=== PATIENT | female | born 1930 | race Caucasian/White ===

== ENCOUNTER 2016-10-10 18:56 | Inpatient (IN) | payer MEDICARE ==
[2016-10-10] VITALS (11 sets, daily range): BP systolic 145–198; BP diastolic 77–128; PULSE 68–141; RESP 16–20; TEMP 97.8–98; O2SAT 91–98
[~2016-10-10] VITALS: Ht 167.6 cm; Wt 64.5 kg
[~2016-10-10 18:56] MED LIST: ENOX40P SC; LEVO100T60 PO; LORT5TAB PO; NORV10TA OR; PACE100T2 PO; SIMV20 PO; ST J81CH PO
[2016-10-10] MEDS ORDERED: DILTIAZEM HCL 25 MG/5 ML VIAL IV ONE (19:15)
[2016-10-10] MEDS ORDERED: LEVO100T63 PO (19:21)
[2016-10-10] MEDS ORDERED: ZOCO20TA PO (19:21)
[2016-10-10] MEDS ORDERED: ASPI81TA81 (19:21)
[2016-10-10] MEDS ORDERED: SYNT25TA PO (19:21)
[2016-10-10] MEDS ORDERED: WARF-18 PO (19:21)
[2016-10-10] MEDS ORDERED: VITA400C28 (19:21)
[2016-10-10 19:32] LABS: AUTOMATED NEUTROPHIL # 2.8 TH/MM3 (1.8-7.7); BASOPHIL % 0.5 % (0.0-2.0); EOSINOPHIL # 0.2 TH/MM3 (0-0.4); EOSINOPHIL % 3.3 % (0.0-4.0); HEMATOCRIT 43.9 % (35.0-46.0); HEMO FLAGS DIFF FINAL; LYMPH % 37.1 % (9.0-44.0); LYMPHOCYTE # 2.3 TH/MM3 (1.0-4.8); MEAN CELL VOLUME 92.4 FL (80.0-100.0); MEAN CORPUSCULAR HEMOGLOBIN 31.3 PG (27.0-34.0); MEAN CORPUSCULAR HGB CONC 33.9 % (32.0-36.0); MONO % 12.8 % (0.0-8.0); NEUT % 46.3 % (16.0-70.0); PLATELET COUNT 150 TH/MM3 (150-450); RED BLOOD COUNT 4.75 MIL/MM3 (4.00-5.30); RED CELL DISTRIBUTION WIDTH 13.5 % (11.6-17.2); WHITE BLOOD COUNT 6.1 TH/MM3 (4.0-11.0)
--- NOTE | 2016-10-10 19:44 | RADRPT ---
EXAM DATE/TIME: 10/10/2016 19:23 [facility] COMPARISON: No previous studies available for comparison. INDICATIONS : Stroke alert, Memory loss and left facial droop. RADIATION DOSE: 32.26 CTDIvol (mGy) This report was called by Dr. Lin to Dr. Jaimes at 7: 41 PM MEDICAL HISTORY : Cardiovascular disease. SURGICAL HISTORY : Appendectomy. Hysterectomy. ENCOUNTER: Initial ACUITY: 1 day PAIN SCALE: 0/10 LOCATION: cranial TECHNIQUE: Multiple contiguous axial images were obtained of the head. Using automated exposure control and adj ustment of the mA and/or kV according to patient size, radiation dose was kept as low as reasonably a chievable to obtain optimal diagnostic quality images. DICOM format image data is available electro nically for review and comparison. FINDINGS: CEREBRUM: The ventricles are normal for age. No evidence of midline shift, mass lesion, hemorrhage or acute in farction. Bilateral low attenuation subdural fluid seen along both frontal convexities measuring up t o 8 mm in maximal thickness on the right and 10 mm in maximal thickness on the left. No acute extra-a xial fluid collections are seen. POSTERIOR FOSSA: The cerebellum and brainstem are intact. The 4th ventricle is midline. The cerebellopontine angle i s unremarkable. EXTRACRANIAL: The visualized portion of the orbits is intact. SKULL: The calvaria is intact. No evidence of skull fracture. CONCLUSION: No acute intracranial abnormality demonstrated. 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 Wyatt Lin MD on October 10, 2016 at 19:38 Board Certified Radiologist. This report was verified electronically.
[2016-10-10 19:46] LABS: APTT (PATIENT) 28.5 SEC (24.3-30.1); INTERNATIONAL NORMALIZED RATIO 1.4 RATIO
[2016-10-10 19:47] LABS: I-STAT POTASSIUM 4.3 MMOL/L (3.5-4.9); I-STAT SODIUM 143 MMOL/L (138-146)
--- NOTE | 2016-10-10 19:58 | RADRPT ---
EXAM DATE/TIME: 10/10/2016 19:07 [facility] COMPARISON: No previous studies available for comparison. INDICATIONS : Short of breath. Possible stroke. MEDICAL HISTORY : None. SURGICAL HISTORY : CABG. ENCOUNTER: Initial ACUITY: 1 day PAIN SCORE: 3/10 LOCATION: Bilateral chest FINDINGS: No infiltrate, effusion or pneumothorax. Heart size upper limits of normal. Patient has had previous median sternotomy. CONCLUSION: No evidence of acute cardiopulmonary disease. Wyatt Lin MD on October 10, 2016 at 19:56 Board Certified Radiologist. This report was verified electronically.
--- NOTE | 2016-10-10 20:04 | PD ---
HPI Chief Complaint: Neuro Symptoms/ Deficits Time Seen by Provider: 19:03 Travel History International Travel<30 days: No Contact w/Intl Traveler<30days: No Traveled to known affect area: No History of Present Illness HPI 85-year-old female presents with 40 minutes of acute onset of difficulty coming up with her words. She states that she has no associated weakness or numbness or other complaints that she is aware of. She states she was in the kitchen and couldn't come up with the word fork. Her brought her here for evaluation. Quality is can't get the word out feeling. She denies prior history of stroke. She states that she takes Coumadin. She has been taking it like she should. help supplement history but limited on initial evaluation PFSH Past Medical History Narrative Medical By records Arthritis: Yes Atrial Fibrillation: Yes Autoimmune Disease: No Anxiety: No Depression: No Cancer: No Cardiovascular Problems: No Chemotherapy: No Diabetes: No Patient Takes Glucophage: No Diminished Hearing: Yes (WEARS GLASSES) Endocrine: Yes (hypothyrodism) Genitourinary: No Immune Disorder: No Neurologic: No Psychiatric: No Reproductive: No Respiratory: No Immunizations Current: Yes Radiation Therapy: No Sickle Cell Disease: No Thyroid Disease: Yes (hypothyrodism) Tetanus Vaccination: < 5 Years Influenza Vaccination: Yes ?: Not Menopausal: Yes Past Surgical History Narrative Surgical By records Abdominal Surgery: Yes (APPENDIX REMOVED) Body Medical Devices: titanium marker under one of my breast Cardiac Surgery: Yes (OPEN HEART) Ear Surgery: No Endocrine Surgery: No Eye Surgery: Yes (GLAUCOMA REMOVAL (BILATERAL)) Genitourinary Surgery: Yes (BLADDER SUSPENSION) Gynecologic Surgery: Yes (HYSTERECTOMY) Oral Surgery: No Pacemaker: No Thoracic Surgery: No Social History Alcohol Use: No Tobacco Use: No Substance Use: No Allergies-Medications (Allergen,Severity, Reaction): Coded Allergies: No Known Allergies (Verified , 10/10/16) Reported Meds & Prescriptions Reported Meds & Active Scripts Active Reported Vitamin D (Cholecalciferol) 400 Unit Cap Aspir-81 (Aspirin) 81 Mg Tabdr Synthroid (Levothyroxine Sodium) 25 Mcg Tab 25 Mcg PO DAILY Warfarin 2.5 Mg Tab 2.5 Mg PO DAILY Zocor (Simvastatin) 20 Mg Tab 20 Mg PO DAILY Levoxyl (Levothyroxine Sodium) 100 Mcg Tab 100 Mcg PO DAILY Review of Systems ROS Limitations: Speech Impaired (slurred) Except as stated in HPI: all other systems reviewed are Neg Physical Exam Narrative GENERAL: Well-nourished, well-developed patient. Tearful SKIN: Warm and dry. HEAD: Normocephalic and atraumatic. EYES: No injection or drainage. ENT: No nasal drainage noted. NECK: Supple, trachea midline. CARDIOVASCULAR: irregular rate and rhythm RESPIRATORY: Breath sounds equal bilaterally at apices. No accessory muscle use. GASTROINTESTINAL: Abdomen soft, non-tender, nondistended. NEUROLOGICAL: Awake and alert. Motor and sensory grossly within normal limits. Mild slurred speech, mild lower facial droop noted Data Data Last Documented VS Vital Signs Date Time Temp Pulse Resp B/P Pulse Ox O2 Delivery O2 Flow Rate FiO2 10/10/16 20:00 91 Nasal Cannula 2 10/10/16 19:59 99 16 164/77 10/10/16 19:03 97.8 Orders Complete Blood Count With Diff (10/10/16 19:04) Urinalysis - C+S If Indicated (10/10/16 19:04) Act Partial Throm Time (Ptt) (10/10/16 19:04) Prothrombin Time / Inr (Pt) (10/10/16 19:04) Ct Brain W/O Iv Contrast(Rout) (10/10/16 ) Chest, Single Ap (10/10/16 ) Electrocardiogram (10/10/16 ) Iv Access Insert/Monitor (10/10/16 19:04) Ecg Monitoring (10/10/16 19:04) Oximetry (10/10/16 19:04) Type And Screen (10/10/16 19:04) Diltiazem Inj (Cardizem Inj) (10/10/16 19:15) I-Stat Creatinine (10/10/16 19:18) I-Stat Profile (10/10/16 19:18) Ckmb (Isoenzyme) Profile (10/10/16 19:07) Comprehensive Metabolic Panel (10/10/16 19:07) Troponin I (10/10/16 19:07) Thyroid Stimulating Hormone (10/10/16 19:07) Heparin-D5w Inj (Heparin-D5w Inj) (10/10/16 20:15) Cbc No Diff, Includes Plts (10/13/16 06:00) Urinary Catheter Insert/Apply (10/10/16 20:15) Cta Brain W Iv Contrast W 3d (10/10/16 20:18) Cta Neck W Iv Contrast W 3d (10/10/16 20:18) Admit Order (Ed Use Only) (10/10/16 20:25) Admit To Inpatient (10/10/16 ) Code Status (10/10/16 20:28) Vital Signs (Adult) Q4H (10/10/16 20:28) Nih Stroke Scale - Nihss .On admission and discharge (10/10/16 20:28) Case Management Consult (10/10/16 ) Activity Bed Rest (10/10/16 20:28) Nursing Bedside Swallow Assess .ONCE (10/10/16 20:28) Scd Bilateral/Knee High SARA.QSHIFT (10/10/16 20:28) Diet Npo (10/11/16 Breakfast) Hemoglobin (Hgb) A1c (10/11/16 06:00) Lipid Profile (10/11/16 06:00) Echo 2d Comp With Doppler (10/10/16 ) Resp Oxygen Jose Alfredo C Titrat 1-4 L (10/10/16 ) ^ Hold Medication (10/10/16 20:28) Consult Neurology (10/10/16 ) Sodium Chloride 0.9% Flush (Ns Flush) (10/10/16 21:00) Sodium Chloride 0.9% Flush (Ns Flush) (10/10/16 20:30) Sodium Chlor 0.9% 1000 Ml Inj (Ns 1000 M (10/10/16 20:28) Labetalol Inj (Trandate Inj) (10/10/16 20:30) Aspirin Supp (Aspirin Supp) (10/11/16 09:00) Pravastatin (Pravachol) (10/10/16 21:00) Bedside Glucose SARA.AC&HS (10/10/16 20:28) ^ Discontinue Insulin Orders (10/10/16 20:28) Insulin Aspart Supplemtl Scale (Novolog (10/10/16 21:00) Dextrose 50% In Williams (Vial) Inj (D50w (Vi (10/10/16 20:30) Glucagon Inj (Glucagon Inj) (10/10/16 20:30) Acquisitions Editor / Telemetry SARA.Q8H (10/10/16 20:28) Consult Stoke Navigator (10/10/16 ) Inpatient Certification (10/10/16 ) Labs Laboratory Tests Test 10/10/16 19:07 White Blood Count 6.1 TH/MM3 Red Blood Count 4.75 MIL/MM3 Hemoglobin 14.9 GM/DL Bedside Hemoglobin 15.3 G/DL Hematocrit 43.9 % Bedside Hematocrit 45.0 % Mean Corpuscular Volume 92.4 FL Mean Corpuscular Hemoglobin 31.3 PG Mean Corpuscular Hemoglobin 33.9 % Concent Red Cell Distribution Width 13.5 % Platelet Count 150 TH/MM3 Mean Platelet Volume 8.4 FL Neutrophils (%) (Auto) 46.3 % Lymphocytes (%) (Auto) 37.1 % Monocytes (%) (Auto) 12.8 % Eosinophils (%) (Auto) 3.3 % Basophils (%) (Auto) 0.5 % Neutrophils # (Auto) 2.8 TH/MM3 Lymphocytes # (Auto) 2.3 TH/MM3 Monocytes # (Auto) 0.8 TH/MM3 Eosinophils # (Auto) 0.2 TH/MM3 Basophils # (Auto) 0.0 TH/MM3 CBC Comment DIFF FINAL Differential Comment Prothrombin Time 16.0 SEC Prothromb Time International 1.4 RATIO Ratio Activated Partial 28.5 SEC Thromboplast Time Bedside Sodium 143 MMOL/L Bedside Potassium 4.3 MMOL/L Bedside Chloride 106 MMOL/L Bedside Blood Urea Nitrogen 15 MG/DL Bedside Creatinine 1.1 MG/DL Bedside Glucose 202 MG/DL Blood Type A POSITIVE Antibody Screen NEGATIVE MDM Medical Decision Making Medical Screen Exam Complete: Yes Emergency Medical Condition: Yes Medical Record Reviewed: Yes (past history confirmed) Interpretation(s) CBC & BMP Diagram 10/10/16 19:07 Last [address] 10/10/16 0000 Signed Impressions: Service Date/Time: Monday, October 10, 2016 19:23 - CONCLUSION: No acute intracranial abnormality demonstrated. 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 Wyatt Lin MD Chest X-Ray 10/10/16 0000 Signed Impressions: Service Date/Time: Monday, October 10, 2016 19:07 - CONCLUSION: No evidence of acute cardiopulmonary disease. Wyatt Lin MD EKG is atrial fibrillation in the 130 range without STEMI criteria Differential Diagnosis Stroke, bleed, seizure, migraine Narrative Course Will check blood work, CT brain and dose with low-dose Cardizem and discuss with neurologist given acute onset of symptoms Blood pressure and heart rate have improved. Patient updated. Denies prior history of head bleed, agrees to admission, no change in symptoms Critical Care Narrative Aggregate critical care time was 31 minutes. Time to perform other separately billable procedures was not included in the critical care time. My time did not include minutes spent treating any other patients simultaneously or on activities that did not directly contribute to the patient's treatment. The services I provided to this patient were to treat and/or prevent clinically significant deterioration that could result in: , shock I provided critical care services requiring my management, as noted below: Chart data review, documentation time, medication orders and management, vital sign assessments/reviewing monitor data, ordering and reviewing lab tests, ordering and interpreting/reviewing x-rays and diagnostic studies, care of the patient and discussion of the patient with the admitting physicians. Physician Communication Physician Communication Dr. Luu states given on Coumadin and minor stroke scale of 2 no stroke alert, requests CTA brain and neck Dr. Luu updated and request heparin drip without bolus and she will need her Coumadin adjusted Dr. Coello agrees to admission Diagnosis Primary Impression: Facial droop Additional Impressions: Slurred speech Atrial fibrillation with RVR Admitting Information Admitting Physician Requests: Admit Adele Turner MD Oct 10, 2016 20:04
[2016-10-10] MEDS: HEPARIN-D5W INJ 250 ML IV SCH (20:29)
[2016-10-10] MEDS ORDERED: DEXTROSE 50% IN WATER 50 ML VIAL(D50) IV PUSH PRN (20:30)
[2016-10-10] MEDS ORDERED: GLUCAGON 1 MG/ML VIAL OTHER PRN (20:30)
[2016-10-10] MEDS ORDERED: SODIUM CHLORIDE 0.9% FLUSH 5 ML FLUSH IV FLUSH PRN (20:30)
--- NOTE | 2016-10-10 20:31 | HHI.HP ---
HPI Service [facility] Primary Care Physician Augustine Olmos Admission Diagnosis stroke, afib rvr Diagnoses: (1) CVA (cerebral vascular accident) Diagnosis: Principal (2) Atrial fibrillation with RVR Diagnosis: Principal (3) Chronic anticoagulation Diagnosis: Principal (4) Hyperglycemia Diagnosis: Principal (5) CYNTHIA (acute kidney injury) Diagnosis: Principal Travel History International Travel<30 Days: No Contact w/Intl Traveler <30 Da: No Traveled to Known Affected Are: No History of Present Illness This is an 85-year-old female with a PMH of A. fib on Coumadin, HTN, Hyperlipidemia and Hypothyroidism who presented to the ER with strokelike symptoms starting approximately 40min prior to arrival. States she couldn't say the word "fork", noted by to have slight slurred speech, symptoms persistent. On arrival, BP 145/99, HR 133, O2 sat 93% on RA, Afebrile. Stroke Scale 2. Noted to be in A. fib with RVR, s/p Cardizem 5mg w/ HR now 85. CT Head w/ no acute findings, bifrontal cystic hygromas. Dr. Luu consulted, given low stroke scale and Coumadin therapy, no Stroke Alert initiated. Recommended CTA Head/Neck, currently pending. CBC unremarkable. Chemistry unremarkable except for creatinine 1.21, previously 0.91 07/31/11. BS 202. Troponin negative. CXR with no acute findings. Review of Systems Except as stated in HPI: all other systems reviewed are Neg ROS: 14 point review of systems otherwise negative. Past Family Social History Past Medical History PMH: A. fib on Coumadin, HTN, Hyperlipidemia and Hypothyroidism Past Surgical History PAST SURGICAL HISTORY: Appendectomy, Bladder Suspension, Hysterectomy, Glaucoma , Open Heart Allergies: Coded Allergies: No Known Allergies (Verified , 10/10/16) Family History PAST FAMILY HISTORY: Reviewed. No h/o DM or CAD Social History PAST SOCIAL HISTORY: Negative for alcohol, tobacco or drugs. Physical Exam Vital Signs Vital Signs Date Time Temp Pulse Resp B/P Pulse Ox O2 Delivery O2 Flow Rate FiO2 10/10/16 20:00 91 Nasal Cannula 2 10/10/16 19:59 99 16 164/77 91 Room Air 10/10/16 19:30 105 18 179/128 93 Room Air 10/10/16 19:25 133 18 145/99 93 Room Air 10/10/16 19:03 97.8 141 20 187/107 94 Room Air 10/10/16 19:02 141 20 95 Physical Exam PE: GENERAL: Pleasant elderly female in no acute distress. HEENT: PERRLA, EOMI. No scleral icterus or conjunctival pallor. No lid lag. + facial droop. Mild slurred speech CARDIOVASCULAR: Regular rate and rhythm. No obvious murmurs to auscultation. No chest tenderness to palpation. RESPIRATORY: No obvious rhonchi or wheezing. Clear to auscultation. Breath sounds equal bilaterally. GASTROINTESTINAL: Abdomen soft, non-tender, nondistended. BS normal. MUSCULOSKELETAL: Extremities without clubbing, cyanosis, or edema. No obvious deformities. NEUROLOGICAL: Awake, alert and oriented x4. Slurred speech. No focal neurologic deficits. Moving both upper and lower extremities spontaneously. Laboratory Laboratory Tests Test 10/10/16 19:07 White Blood Count 6.1 Red Blood Count 4.75 Hemoglobin 14.9 Bedside Hemoglobin 15.3 Hematocrit 43.9 Bedside Hematocrit 45.0 Mean Corpuscular Volume 92.4 Mean Corpuscular Hemoglobin 31.3 Mean Corpuscular Hemoglobin 33.9 Concent Red Cell Distribution Width 13.5 Platelet Count 150 Mean Platelet Volume 8.4 Neutrophils (%) (Auto) 46.3 Lymphocytes (%) (Auto) 37.1 Monocytes (%) (Auto) 12.8 Eosinophils (%) (Auto) 3.3 Basophils (%) (Auto) 0.5 Neutrophils # (Auto) 2.8 Lymphocytes # (Auto) 2.3 Monocytes # (Auto) 0.8 Eosinophils # (Auto) 0.2 Basophils # (Auto) 0.0 CBC Comment DIFF FINAL Differential Comment Prothrombin Time 16.0 Prothromb Time International 1.4 Ratio Activated Partial 28.5 Thromboplast Time Bedside Sodium 143 Bedside Potassium 4.3 Bedside Chloride 106 Bedside Blood Urea Nitrogen 15 Bedside Creatinine 1.1 Bedside Glucose 202 Blood Type A POSITIVE Antibody Screen NEGATIVE Result Diagram: 10/10/16 9115 Assessment and Plan Problem List: (1) CVA (cerebral vascular accident) ICD Code: I63.9 Status: Acute (2) Atrial fibrillation with RVR ICD Code: I48.91 Status: Acute (3) CYNTHIA (acute kidney injury) ICD Code: N17.9 Status: Acute (4) Chronic anticoagulation ICD Code: Z79.01 Status: Acute (5) Hyperglycemia ICD Code: R73.9 Status: Acute Assessment and Plan A/P 1. CVA: acute onset of slurred speech, word finding difficulty and mild facial droop approx 40min prior to arrival. Stroke Scale 2, on Coumadin. Dr. Luu consulted by ER physician, no Stroke Alert in light of low stroke scale and anticoagulation. Recommendation for CTA Head/Neck, currently pending. Neuro Checks, NPO, IVF, permissive HTN. 2. A-fib w/ RVR: H/o A-fib on Coumadin, subtherapeutic w/ INR 1.4. Episode of RVR w/ HR 130's, s/p Cardizem 5mg x1 in ER w/ HR now 80's, will monitor, caution w/ Cardizem and hypotension in light of CVA. Started on Heparin gtt in ER, will continue. Check Echo. 3. CYNTHIA: Creatinine 1.21, previously 0.91 07/31/11. Check UA. IVF for hydration , repeat labs in a.m. 4. Chronic Anticoagulation: As above, patient on Coumadin for history of A. fib, INR subtherapeutic at 1.4. Started on Heparin gtt in ER, will continue. 5. Hyperglycemia: BS 202 on arrival, no h/o DM. Check Hgb A1c, sliding scale w/ Accu-Cheks. 6. DVT Prophylaxis: Heparin gtt 7. Social work for DC planning as needed. 8. Case discussed at length with ER physician. Physician Certification 2 Midnight Certification Type: Admission for Inpatient Services Order for Inpatient Services The services are ordered in accordance with Medicare regulations or non- Medicare payer requirements, as applicable. In the case of services not specified as inpatient-only, they are appropriately provided as inpatient services in accordance with the 2-midnight benchmark. Estimated LOS (days): 2 days is the estimated time the patient will need to remain in the hospital, assuming treatment plan goals are met and no additional complications. Post-Hospital Plan: Not yet determined Marjan Coello MD Oct 10, 2016 20:31
[2016-10-10 20:43] LABS: BLOOD, URINE MOD (NEG); COMMENT (UR) CULT NOT INDICATED; CULTURE IF INDICATED CULT NOT INDICATED; GLUCOSE,URINE NEG (NEG); KETONE, URINE NEG (NEG); NITRITE,URINE NEG (NEG); URINE COLOR YELLOW (YELLW/STRAW)
[2016-10-10] MEDS ORDERED: IOHEXOL 350 MG/ML 10 ML VIAL (for RAD DIAG) IV ONE (20:54)
[2016-10-10] MEDS: PRAVASTATIN SOD 40 MG TAB PO SCH (21:00)
[2016-10-10] MEDS: SODIUM CHLORIDE 0.9% FLUSH 5 ML FLUSH IV FLUSH SCH (21:00)
[2016-10-10 21:10] LABS: ALT (GPT) 24 U/L (10-53); ANION GAP 9 MEQ/L (5-15); AST (GOT) 30 U/L (15-37); BICARBONATE 22.3 MEQ/L (21.0-32.0); BLOOD UREA NITROGEN 15 MG/DL (7-18); CHLORIDE 109 MEQ/L (98-107); GLOMERULAR FILTRATION RATE 42 ML/MIN (>89); POTASSIUM 4.2 MEQ/L (3.5-5.1); SODIUM (NA) 140 MEQ/L (136-145)
[2016-10-10 21:20] LABS: ALKALINE PHOSPHATASE 63 U/L (45-117); CREATINE KINASE 101 U/L (26-192); TOTAL BILIRUBIN ADULT 0.8 MG/DL (0.2-1.0)
--- NOTE | 2016-10-10 21:24 | RADRPT ---
EXAM DATE/TIME: 10/10/2016 20:45 [facility] COMPARISON: No previous studies available for comparison. INDICATIONS : Memory loss and facial droop. IV CONTRAST: 75 cc Omnipaque 350 (iohexol) IV ; Cumulative dose for multiple exams. RADIATION DOSE: 15.76 CTDIvol (mGy) ; Combined studies MEDICAL HISTORY : Cardiovascular disease. SURGICAL HISTORY : None. ENCOUNTER: Initial ACUITY: 1 day PAIN SCALE: 0/10 LOCATION: cranial TECHNIQUE: Volumetric scanning was performed using a multi-row detector CT scanner. The data was post processed with a variety of visualization algorithms including full volume maximum intensity projection, multi -planar sliding thin slab reformation, curved planar reformation, and surface rendering techniques. Using automated exposure control and adjustment of the mA and/or kV according to patient size, radiat ion dose was kept as low as reasonably achievable to obtain optimal diagnostic quality images. DICO M format image data is available electronically for review and comparison. FINDINGS: There is excellent visualization of the major intracranial arteries out to the second-order branch ve ssels. There is no evidence for aneurysm, vessel truncation or stenosis, and no evidence for vascula r malformation. CONCLUSION: Intracranial arteries are within normal limits. Wyatt Lin MD on October 10, 2016 at 21:22 Board Certified Radiologist. This report was verified electronically.
[2016-10-10] MEDS: SODIUM CHLOR 0.9% 1000 ML INJ 1,000 ML IV SCH (21:29)
--- NOTE | 2016-10-10 21:34 | RADRPT ---
EXAM DATE/TIME: 10/10/2016 20:50 [facility] COMPARISON: No previous studies available for comparison. INDICATIONS : Memory loss and facial droop. IV CONTRAST: 75 cc Omnipaque 350 (iohexol) IV ; Cumulative dose for multiple exams. RADIATION DOSE: 15.76 CTDIvol (mGy) ; Combined studies MEDICAL HISTORY : Cardiovascular disease. SURGICAL HISTORY : None. ENCOUNTER: Initial ACUITY: 1 day PAIN SCALE: 0/10 LOCATION: neck Elevated flow velocities and ICA/CCA ratios have been found to correlate with increased degrees of vessel stenosis, calculated as percentage of diameter relative to a normal segment of distal ICA/CCA. TECHNIQUE: Volumetric scanning was performed using a multirow detector CT scanner. The data was post processed with a variety of visualization algorithms including full-volume maximum intensity projection, multip lanar sliding thin-slab reformation, curved-planar reformation, and surface-rendering techniques. Us ing automated exposure control and adjustment of the mA and/or kV according to patient size, radiatio n dose was kept as low as reasonably achievable to obtain optimal diagnostic quality images. DICOM f ormat image data is available electronically for review and comparison. FINDINGS: AORTIC ARCH: There is a three-vessel origin of the great vessels from the aorta. No evidence of ostial narrowing. RIGHT CAROTID: The common carotid artery is intact. The carotid bulb has a normal configuration without ulceration o r narrowing. There is soft and calcified plaque of the proximal right internal carotid artery and wit h an associated 12 mm long area of stenosis probably approaching 70%.. The external carotid artery i s intact. LEFT CAROTID: The common carotid artery is intact. The carotid bulb has a normal configuration without ulceration or narrowing. There is atherosclerosis of the proximal left internal carotid artery with subcentimete r long narrowing of the 50%.. The external carotid artery is intact. VERTEBRALS: The vertebral arteries have a symmetric diameter. No stenotic lesions are seen. CONCLUSION: Atherosclerotic plaque of both carotid bifurcations with moderate to severe right and moderate left i nternal carotid artery stenosis. The right ICA stenosis probably approaches hemodynamic significance. Wyatt Lin MD on October 10, 2016 at 21:30 Board Certified Radiologist. This report was verified electronically.
[2016-10-10] MEDS: INSULIN ASPART SUPPLEMENTAL SCALE SQ SCH (22:00)
[2016-10-10] MEDS ORDERED: LABETALOL HCL 100 MG/20 ML VIAL IV PRN (22:00)
[2016-10-11] VITALS (22 sets, daily range): BP systolic 105–178; BP diastolic 67–103; PULSE 71–96; RESP 15–19; TEMP 98–98.5; O2SAT 92–100
[2016-10-11 04:16] LABS: APTT (PATIENT) 47.1 SEC (24.3-30.1)
[2016-10-11 04:20] LABS: HDL CHOLESTEROL 45.7 MG/DL (40.0-60.0); LDL CHOLESTEROL 54 MG/DL (0-99)
[2016-10-11] MEDS: INSULIN ASPART SUPPLEMENTAL SCALE SQ SCH ×4 (06:07→21:00)
[2016-10-11] MEDS: SODIUM CHLORIDE 0.9% FLUSH 5 ML FLUSH IV FLUSH SCH ×2 (09:00→21:00)
[2016-10-11] MEDS: ASPIRIN 300 MG SUPP RECTAL SCH (09:00)
[2016-10-11] MEDS ORDERED: LORazepam 2 MG/ML VIAL IV PUSH ONE (10:45)
[2016-10-11] MEDS: SODIUM CHLOR 0.9% 1000 ML INJ 1,000 ML IV SCH (10:46)
[2016-10-11 11:07] LABS: APTT (PATIENT) 49.7 SEC (24.3-30.1)
[2016-10-11] MEDS ORDERED: ASPIRIN 325 MG TAB PO ONE (11:15)
[2016-10-11 12:08] LABS: INTERNATIONAL NORMALIZED RATIO 1.6 RATIO; PROTHROMBIN TIME - PATIENT 18.1 SEC (9.8-11.6)
[2016-10-11] MEDS ORDERED: GADOBENATE DIM PF 529 MG/ML 10ML VIAL (for RAD MRI) IV ONE (12:18)
--- NOTE | 2016-10-11 13:21 | RADRPT ---
EXAM DATE/TIME: 10/11/2016 12:08 [facility] COMPARISON: CTA BRAIN W 3D RECON, October 10, 2016, 20:45. CT BRAIN W/O CONTRAST, October 10, 2016, 19:23. INDICATIONS : Expressive aphasia. CONTRAST: 10 cc Multihance (gadobenate) IV MEDICAL HISTORY : Hypertension. Cardiovascular disease SURGICAL HISTORY : CABG Hip surgery. ENCOUNTER: Initial ACUITY: 1 day PAIN SCORE: 0/10 LOCATION: cranial TECHNIQUE: Multiplanar, multisequence MRI of the brain was performed both prior to and following the administrat ion of paramagnetic contrast. FINDINGS: CEREBRUM: Focal area of restricted diffusion is identified in the right frontal cortex. This is in the lateral premotor region just above Broca's area. Normal signal intensity is also otherwise noted throughout t he cerebral hemispheres. No other areas of restricted diffusion are seen. There is no subacute hemorr bull, mass effect or enhancing lesions. WHITE MATTER: No significant signal abnormalities are seen in the white matter. POSTERIOR FOSSA: The cerebellum and brainstem are intact. The 4th ventricle is midline. The cerebellopontine angle is unremarkable. The cerebellar tonsils are normal in position. DIFFUSION IMAGING: No other focal areas of restricted diffusion are seen. EXTRACRANIAL: The visualized portions of the orbits and paranasal sinuses are unremarkable. POST-CONTRAST: No abnormal areas of parenchymal or dural enhancement. No evidence of blood-brain barrier breakdown. CONCLUSION: Acute right frontal lobe infarct which correlates with the patient's expressive aphasia. No other significant abnormalities Mathew Mercer MD on October 11, 2016 at 13:09 Board Certified Radiologist. This report was verified electronically.
--- NOTE | 2016-10-11 14:01 | EKG ---
Date Performed: 10/10/2016 Time Performed: 19:13:20 PTAGE: 85 years EKG: ATRIAL FIBRILLATION WITH RAPID VENTRICULAR RESPONSE ABNORMAL RHYTHM ECG PREVIOUS TRACING : 07/28/2011 20.34 Since prior tracing, atrial fibrillation with rapid ventric ular response has replaced Sinus rhythm . DOCTOR: Aron Lofton Interpretating Date/Time 10/11/2016 14:01:05
[2016-10-11 14:38] LABS: BICARBONATE 27.2 MEQ/L (21.0-32.0)
[2016-10-11 15:04] LABS: FREE T4 1.7 NG/DL (0.76-1.46)
--- NOTE | 2016-10-11 15:15 | MB ---
cc: MICHELLE HOPPER M.D. DATE OF CONSULTATION: 10/11/2016. HISTORY OF PRESENT ILLNESS: 85-year-old right-handed woman with a history of CABG and atrial fibrillation who takes a baby aspirin a day and also Coumadin, hypothyroidism. She takes a statin. Yesterday at dinner she noticed that she was washing the dishes after dinner and she could not figure out how to put something in the bag. Her speech was slurred with a left facial droop. She came into the emergency room and was noted to have a mild deficit and as such was not given tPA. Her INR was subtherapeutic at 1.4 and she was started on IV heparin. CTA of the neck looks to me to be almost a 90% stenosis. It was read as a 50% stenosis on the left. A chest x-ray was negative. CTA [place] negative. CT scan of the brain shows some bilateral hygromas, chronic, 1 cm the left and 0.83 cm on the right. No blood products in there. REVIEW OF SYSTEMS: She denies any hypertension, diabetes, hypercholesterolemia, renal, hepatic, pulmonary disease, lupus, ulcer, cancer, seizure or stroke. SOCIAL HISTORY: Nonsmoker or drinker. She lives with her . FAMILY HISTORY: Negative for cancer, seizure or stroke. MEDICATIONS: 1. Vitamin D. 2. Aspirin 81. 3. Synthroid. 4. Coumadin 2.5 a day. 5. Zocor. 6. Thyroid medicine. ALLERGIES: NO KNOWN DRUG ALLERGIES. PHYSICAL EXAMINATION: VITAL SIGNS: Afebrile, 85, 16, 178/93 to 173/103. Highest blood pressure was 187/107. NECK: There were no carotid bruits. HEART: Regular rhythm. I do not detect a murmur. NEUROLOGICAL EXAMINATION: Pupils are equal. Visual krishnamurthy are full. Extraocular movements intact without nystagmus. She does have a left facial droop with normal sensation. Tongue was midline. Speech is a little dysarthric but she is not aphasic. There is no drift. She had normal strength in upper and lower extremities bilaterally. DTRs are 2+ symmetric. Toes are downgoing bilaterally. Pin prick is intact throughout. She is not ataxic on [id number]. Fast finger movements were symmetric and normal. LABS: CBC is normal. Her urinalysis was negative except for 85 red cells. Basic metabolic profile was normal. GFR is 42. Glucose 202, although she denied any diabetes. Troponin, CPK, liver function tests normal. LDL cholesterol is 54. TSH is low at 0.36. INR was 1.4 yesterday and is pending today. CBC was normal. IMPRESSION: Right-sided stroke. I thought the right carotid was significantly stenosed, I thought a little bit more than 70%. Will have to see what vascular says. Will have Dr. Harvey, who is known to them, come by and see her for cardiology as he was recommending a stress test as an outpatient. See what her INR is today. Depending on the size of the stroke will depend on if she needs a right carotid endarterectomy and the timing for the surgery. I did discuss with her as far as her greens intake, she eats a lot of greens, although she is usually therapeutic but was subtherapeutic now. MD CAMILLE Prince/IDALIA /10:41 AM /3:06 PM
--- NOTE | 2016-10-11 15:20 | HHI.PR ---
Subjective Remarks Follow-up for CVA sedated, currently poor historian. Very sleepy and groggy but allegedly oriented before Ativan was given for MRI. Objective Vitals Vital Signs Date Time Temp Pulse Resp B/P Pulse Ox O2 Delivery O2 Flow Rate FiO2 10/11/16 14:05 84 10/11/16 13:08 81 10/11/16 11:00 98.3 79 18 112/84 96 10/11/16 09:06 99 Nasal Cannula 10/11/16 07:00 98.3 85 16 178/93 100 10/11/16 04:29 79 10/11/16 03:51 71 10/11/16 03:16 98.0 81 173/103 99 10/11/16 02:00 78 10/11/16 01:00 72 10/11/16 00:00 74 10/10/16 23:00 68 10/10/16 22:00 86 10/10/16 21:50 98.0 90 186/95 98 10/10/16 21:25 85 16 198/84 96 Nasal Cannula 2 10/10/16 21:07 98 Nasal Cannula 2.00 10/10/16 20:00 91 Nasal Cannula 2 10/10/16 19:59 99 16 164/77 91 Room Air 10/10/16 19:30 105 18 179/128 93 Room Air 10/10/16 19:25 133 18 145/99 93 Room Air 10/10/16 19:03 97.8 141 20 187/107 94 Room Air 10/10/16 19:02 141 20 95 10/10/16 19:00 103 I/O 10/10/16 10/10/16 10/10/16 10/11/16 10/11/16 10/11/16 07:00 15:00 23:00 07:00 15:00 23:00 Output Total 450 ml 1600 ml Balance -450 ml -1600 ml Output Urine Total 450 ml 1600 ml Result Diagram: 10/10/16 1907 10/11/16 1352 Imaging Last Impressions Brain MRI 10/11/16 1038 Signed Impressions: Service Date/Time: Tuesday, October 11, 2016 12:08 - CONCLUSION: Acute right frontal lobe infarct which correlates with the patient's expressive aphasia. No other significant abnormalities Mathew Mercer MD Neck CTA 7/14/17 2018 Signed Impressions: Service Date/Time: Monday, October 10, 2016 20:50 - CONCLUSION: Atherosclerotic plaque of both carotid bifurcations with moderate to severe right and moderate left internal carotid artery stenosis. The right ICA stenosis probably approaches hemodynamic significance. Wyatt Lin MD Head CTA 10/10/162017 Signed Impressions: Service Date/Time: Monday, October 10, 2016 20:45 - CONCLUSION: Intracranial arteries are within normal limits. Wyatt Lin MD Head CT 10/10/16 Signed Impressions: Service Date/Time: Monday, October 10, 2016 19:23 - CONCLUSION: No acute intracranial abnormality demonstrated. 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 Wyatt Lin MD Chest X-Ray 10/10/16 Signed Impressions: Service Date/Time: Monday, October 10, 2016 19:07 - CONCLUSION: No evidence of acute cardiopulmonary disease. Wyatt Lin MD Objective Remarks Not in distress Regular rate and rhythm with skipped beats, no murmurs Clear breath sounds Abdomen soft nontender No edema Moves upper extremities, positive for generalized weakness. Very sleepy but arousable, status post Ativan. Left facial droop positive. Oriented to self. Allegedly oriented to self, place and time prior to Ativan. A/P Problem List: (1) CVA (cerebral vascular accident) ICD Code: I63.9 Status: Acute (2) Atrial fibrillation with RVR ICD Code: I48.91 Status: Acute (3) CYNTHIA (acute kidney injury) ICD Code: N17.9 Status: Acute (4) Chronic anticoagulation ICD Code: Z79.01 Status: Acute (5) Hyperglycemia ICD Code: R73.9 Status: Acute Assessment and Plan This is an 85-year-old female who presented with expressive aphasia CVA, right frontal lobe-MRI showed right frontal lobe infarct, CT of the neck showed possible right internal carotid artery stenosis. Further input per neurology pending. Continue Coumadin per neurology, on heparin for now was subtherapeutic INR. Continue statin. Check echocardiogram. Hypothyroidism-TSH low, free T4 elevated, decrease levothyroxine to 100 g daily. Atrial fibrillation-needs to resume monthly coagulation, Coumadin started, follow INR Acute kidney insufficiency -continue IVF, repeat creatinine better. Hyperglycemia-no history of diabetes mellitus, follow-up hemoglobin A1c, sliding scale insulin for now Consult physical therapy and speech therapy, might need rehabilitation DVT prophylaxis: Coumadin Dominique Cardoso MD Oct 11, 2016 15:20
[2016-10-11] MEDS ORDERED: WARFARIN SOD 3 MG TAB PO SCH (16:00)
--- NOTE | 2016-10-11 20:36 | PD.CAR.PN ---
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 As far as the left side is concerned as red as 50% stenosis however there is a lot of calcium there is very hard to tell some going to go over this with the radiologist on Thursday At this point I believe patient should remain on Coumadin and aspirin have aggressive physical and occupational therapy I will see patient for follow-up in about 10 days at which point we gone a repeat MRI of the brain and then all things equal patient will get surgery following MRI, barring any surprises Full consult dictated Thanks J Objective: Vital Signs Date Time Temp Pulse Resp B/P Pulse Ox O2 Delivery O2 Flow Rate FiO2 10/11/16 18:17 77 10/11/16 17:34 96 10/11/16 16:03 93 10/11/16 15:50 98.3 81 18 126/70 95 10/11/16 15:45 78 10/11/16 14:05 84 10/11/16 13:08 81 10/11/16 11:00 98.3 79 18 112/84 96 10/11/16 09:06 99 Nasal Cannula 10/11/16 07:00 98.3 85 16 178/93 100 10/11/16 04:29 79 10/11/16 03:51 71 10/11/16 03:16 98.0 81 173/103 99 10/11/16 02:00 78 10/11/16 01:00 72 10/11/16 00:00 74 10/10/16 23:00 68 10/10/16 22:00 86 10/10/16 21:50 98.0 90 186/95 98 10/10/16 21:25 85 16 198/84 96 Nasal Cannula 2 10/10/16 21:07 98 Nasal Cannula 2.00 Labs: Laboratory Tests Test 10/11/16 10/11/16 10:47 13:52 Prothrombin Time 18.1 SEC (9.8-11.6) Prothromb Time International 1.6 RATIO Ratio Activated Partial 49.7 SEC Thromboplast Time (24.3-30.1) Sodium Level 140 MEQ/L (136-145) Potassium Level 4.0 MEQ/L (3.5-5.1) Chloride Level 108 MEQ/L (98-107) Carbon Dioxide Level 27.2 MEQ/L (21.0-32.0) Anion Gap 5 MEQ/L (5-15) Blood Urea Nitrogen 13 MG/DL (7-18) Creatinine 0.89 MG/DL (0.50-1.00) Estimat Glomerular Filtration 60 ML/MIN (>89) Rate Random Glucose 105 MG/DL (74-106) Calcium Level 9.3 MG/DL (8.5-10.1) Vitamin B12 Level 502 PG/ML (193-986) Free Thyroxine 1.70 NG/DL (0.76-1.46) Result Diagram: 10/10/16 1907 10/11/16 1352 Teofilo Nunez MD Oct 11, 2016 20:36
--- NOTE | 2016-10-11 21:03 | MB ---
cc: MD [facility]A,[facility] DATE OF CONSULTATION: 10/11/2016. REASON FOR CONSULTATION: Right hemispheric stroke. Right internal carotid artery stenosis. Atrial fibrillation. Coronary artery disease. REFERRING PHYSICIAN: Dr. Luu. CRITICAL CARE TIME: Forty (40) minutes. HISTORY OF PRESENT ILLNESS: This 85-year-old female with history of atrial fibrillation and coronary artery disease presented to the hospital with a story of confusion. The patient apparently was washing dishes yesterday and at that time could not figure out how to put things in place or open a bag. Her speech was slurred. She developed left facial droop. The patient had a small minor deficit. She was evaluated in the emergency room and admitted. Workup reveals a right hemispheric stroke on MRI measuring about 7 mm in diameter. It should be noted that the patient was on coumadin for atrial fibrillation but was somewhat subtherapeutic with an INR of 1.4. Full workup is not completed and the question arises as to what to do about it surgically. PAST MEDICAL HISTORY: 1. Coronary artery disease. 2. Hypothyroidism. 3. Chronic atrial fibrillation. PAST SURGICAL HISTORY: 1. Coronary artery bypass surgery. 2. Appendectomy. 3. Bladder suspension. 4. Hysterectomy. 5. Glaucoma. SOCIAL HISTORY: The patient does not smoke or drink. She lives at home with her . REVIEW OF SYSTEMS: The review of systems is normal. It should also be noted in the review of systems that the patient had one episode in the recent past when she could not swallow at night and this might have been a TIA but it is hard to tell. PHYSICAL EXAMINATION: GENERAL: The physical examination reveals a pleasant 85-year-old lady in no acute distress. HEAD, EYES, EARS, NOSE, THROAT: Normocephalic. No trauma to the head. Pupils equal and reactive. Extraocular muscles intact. The sclerae are nonicteric. The patient has mild facial droop on the left side but also slight decrease in grimace on the right side. She has a little problem with opening her left eye, which has now resolved. Speech is slightly slurred and the patient is searching for words. Some degree of expressive aphasia but doing better. NECK: Bilateral carotid pulses and bilateral carotid bruits. CHEST: Bilateral breath sounds decreased over both lung krishnamurthy. This patient has a moderate degree of COPD. HEART: Controlled atrial fibrillation about 90 while I was in the room but while holding her wrist the rate went up to 110 and then dropped back down. ABDOMEN: Abdomen soft. Active bowel sounds. Scars from previous surgery. EXTREMITIES: Grossly within normal limits. The patient has good proximal and distal pulses. No signs of acute deficit. BACK: Normal. NEUROLOGICAL EXAMINATION: Above-noted weakness of the face and slight slurring of the speech; however, motorically the patient is fully intact. She has bilateral equal strength and symmetric. No lateralization. The patient has not been out of bed now for two days and she is slightly weak and this will be remedied. IMPRESSION AND RECOMMENDATIONS: Patient with a right hemispheric stroke visible on MRI. This is an ischemic stroke and correlates to about 80% right internal carotid artery stenosis. I am fairly sure that this is not related to atrial fibrillation, although sometimes in patients with atrial fibrillation, it is hard to distinguish which one is which and what is the cause. This clearly correlates with a significant degree of carotid disease. Therefore it is my recommendation that the patient does have carotid endarterectomy. The patient is of advanced age but she is very active and as a matter of fact, she bicycles every day and also works out on an [employer] machine, so she is not very sedentary for all practical purposes, and is in fairly good shape. On the left side, the patient has probably more stenosis than CTA would indicate considering there is a fair amount of calcium there; however, this is not symptomatic at this time. Therefore, it is my recommendation that the patient does have carotid endarterectomy with somewhat of a delay. We should probably delay it for about a week or two. I will see the patient in my office in about ten days at which time we are going to repeat the MRI and then all things equal and barring any surprises, will schedule her for right carotid endarterectomy. Thank you very much for the referral. Teofilo ESPINOSA /8:44 PM 8:53 PM
[2016-10-11] MEDS ORDERED: WARFARIN SOD 2 MG TAB PO ONE (21:30)
[2016-10-11] MEDS: PRAVASTATIN SOD 40 MG TAB PO SCH (22:21)
[2016-10-11] MEDS: HEPARIN-D5W INJ 250 ML IV SCH (22:31)
[2016-10-12] VITALS (26 sets, daily range): BP systolic 118–176; BP diastolic 64–83; PULSE 59–110; RESP 15–18; TEMP 97.9–98.6; O2SAT 91–98
[2016-10-12] MEDS: SODIUM CHLOR 0.9% 1000 ML INJ 1,000 ML IV SCH ×2 (01:36→15:22)
[2016-10-12] MEDS: LEVOTHYROXINE SODIUM 100 MCG TAB PO SCH (06:00)
[2016-10-12] MEDS: INSULIN ASPART SUPPLEMENTAL SCALE SQ SCH ×2 (06:03→11:00)
[2016-10-12 06:19] LABS: APTT (PATIENT) 53.2 SEC (24.3-30.1); INTERNATIONAL NORMALIZED RATIO 1.5 RATIO; PROTHROMBIN TIME - PATIENT 17.4 SEC (9.8-11.6)
[2016-10-12] MEDS: ASPIRIN 300 MG SUPP RECTAL SCH (09:00)
[2016-10-12] MEDS: SODIUM CHLORIDE 0.9% FLUSH 5 ML FLUSH IV FLUSH SCH ×2 (09:00→21:00)
--- NOTE | 2016-10-12 09:49 | PD.CONS ---
HPI Service cardiology Consult Requested By service Reason for Consult afib Primary Care Physician Augustine Olmos History of Present Illness admitted with new onset cva with speech and mouth drooling improving had afib before no cva before cabg 2010 no cp no sob fully active no edema no syncope was taking meds faithfully Review of Systems Consitutional: COMPLAINS OF: Fatigue HEENT: COMPLAINS OF: Lightheadedness Past Family Social History Allergies: Coded Allergies: No Known Allergies (Verified , 10/10/16) Past Medical History htn cad cabg afib Past Surgical History non contributing Reported Medications Reported Meds & Active Scripts Active Reported Vitamin D (Cholecalciferol) 400 Unit Cap Aspir-81 (Aspirin) 81 Mg Tabdr Synthroid (Levothyroxine Sodium) 25 Mcg Tab 25 Mcg PO DAILY Warfarin 2.5 Mg Tab 2.5 Mg PO DAILY Zocor (Simvastatin) 20 Mg Tab 20 Mg PO DAILY Levoxyl (Levothyroxine Sodium) 100 Mcg Tab 100 Mcg PO DAILY Active Ordered Medications Current Medications Medications (Trade) Dose Ordered Sig/Donte Route Start Time Stop Time Status Last Admin (Heparin-D5W Inj) 250 ml @ 0 mls/hr TITRATE IV 10/10/16 20:15 10/11/16 22:31 (NS Flush) 2 ml BID IV FLUSH 10/10/16 21:00 10/12/16 09:00 IV Flush 2 ml 2 ml UNSCH PRN IV FLUSH 10/10/16 20:30 (NS 1000 ml Inj) 1,000 ml @ 70 mls/hr [id number] IV 10/10/16 20:28 10/12/16 01:36 (Trandate Inj) 10 mg Q2H PRN IV 10/10/16 22:00 (Aspirin Supp) 300 mg DAILY RECTAL 10/11/16 09:00 (Pravachol) 40 mg HS PO 10/10/16 21:00 10/11/16 22:21 (NovoLOG SUPPLEMENTAL SCALE) 1 ACHS SQ 10/10/16 22:00 (D50w (Vial) Inj) 50 ml UNSCH PRN IV PUSH 10/10/16 20:30 (Glucagon Inj) 1 mg UNSCH PRN OTHER 10/10/16 20:30 (Synthroid) 100 mcg DAILY@0600 PO 10/12/16 06:00 10/12/16 06:00 (Coumadin) 5 mg DAILY@16 PO 10/12/16 16:00 Family History non contributing Social History no tobacco no drugs no alcohol Physical Exam Vital Signs Vital Signs Date Time Temp Pulse Resp B/P Pulse Ox O2 Delivery O2 Flow Rate FiO2 10/12/16 08:35 104 10/12/16 07:00 93 10/12/16 07:00 98.3 95 16 153/83 95 10/12/16 06:17 86 10/12/16 05:00 76 10/12/16 04:00 80 10/12/16 03:00 74 10/12/16 03:00 98.6 88 16 118/67 91 10/12/16 02:15 72 10/12/16 01:01 76 10/11/16 23:00 98.4 80 15 105/67 94 10/11/16 23:00 71 10/11/16 22:00 74 10/11/16 21:00 80 10/11/16 20:00 82 10/11/16 19:02 92 Nasal Cannula 2.00 10/11/16 19:00 98.5 80 19 158/87 92 10/11/16 19:00 84 10/11/16 18:17 77 10/11/16 17:34 96 10/11/16 16:03 93 10/11/16 15:50 98.3 81 18 126/70 95 10/11/16 15:45 78 10/11/16 14:05 84 10/11/16 13:08 81 10/11/16 11:00 98.3 79 18 112/84 96 Physical Exam heent bilateral bruit heart s1s2 afib controlled rate lung clear abdomen free ext free no edema Laboratory Laboratory Tests Test 10/11/16 10/11/16 10/12/16 10:47 13:52 05:50 Prothrombin Time 18.1 17.4 Prothromb Time International 1.6 1.5 Ratio Activated Partial 49.7 53.2 Thromboplast Time Sodium Level 140 Potassium Level 4.0 Chloride Level 108 Carbon Dioxide Level 27.2 Anion Gap 5 Blood Urea Nitrogen 13 Creatinine 0.89 Estimat Glomerular Filtration 60 Rate Random Glucose 105 Calcium Level 9.3 Vitamin B12 Level 502 Free Thyroxine 1.70 Result Diagram: 10/10/16 1907 10/11/16 1352 Assessment and Plan Problem List: (1) Hyperglycemia (2) CVA (cerebral vascular accident) (3) Chronic anticoagulation (4) Atrial fibrillation with RVR Assessment and Plan: continue to control rate already on heparin Dr Harvey to follow up in Dominic Carlson MD Oct 12, 2016 09:49
[2016-10-12] MEDS: METOPROLOL TARTRATE 25 MG TAB PO SCH ×2 (09:53→21:38)
--- NOTE | 2016-10-12 09:55 | HHI.PR ---
Subjective Remarks Follow-up for CVA Expressive aphasia almost resolved, mild stuttering but able to verbalize. No weakness, denies any numbness, headache, nausea, vomiting, chest pain or palpitations. Discussed with . Objective Vitals Vital Signs Date Time Temp Pulse Resp B/P Pulse Ox O2 Delivery O2 Flow Rate FiO2 10/12/16 08:35 104 10/12/16 07:00 93 10/12/16 07:00 98.3 95 16 153/83 95 10/12/16 06:17 86 10/12/16 05:00 76 10/12/16 04:00 80 10/12/16 03:00 74 10/12/16 03:00 98.6 88 16 118/67 91 10/12/16 02:15 72 10/12/16 01:01 76 10/11/16 23:00 98.4 80 15 105/67 94 10/11/16 23:00 71 10/11/16 22:00 74 10/11/16 21:00 80 10/11/16 20:00 82 10/11/16 19:02 92 Nasal Cannula 2.00 10/11/16 19:00 98.5 80 19 158/87 92 10/11/16 19:00 84 10/11/16 18:17 77 10/11/16 17:34 96 10/11/16 16:03 93 10/11/16 15:50 98.3 81 18 126/70 95 10/11/16 15:45 78 10/11/16 14:05 84 10/11/16 13:08 81 10/11/16 11:00 98.3 79 18 112/84 96 I/O 10/11/16 10/11/16 10/11/16 10/12/16 10/12/16 10/12/16 07:00 15:00 23:00 07:00 15:00 23:00 Intake Total 1519 ml 886 ml Output Total 1600 ml 550 ml 775 ml Balance -1600 ml 969 ml 111 ml Intake Oral 150 ml IV Total 1369 ml 886 ml Output Urine Total 1600 ml 550 ml 775 ml Result Diagram: 10/10/16 1907 10/11/16 1352 Imaging Last Impressions Brain MRI 10/11/16 1038 Signed Impressions: Service Date/Time: Tuesday, October 11, 2016 12:08 - CONCLUSION: Acute right frontal lobe infarct which correlates with the patient's expressive aphasia. No other significant abnormalities Mathew Mercer MD Neck CTA 10/10/162017 Signed Impressions: Service Date/Time: Monday, October 10, 2016 20:50 - CONCLUSION: Atherosclerotic plaque of both carotid bifurcations with moderate to severe right and moderate left internal carotid artery stenosis. The right ICA stenosis probably approaches hemodynamic significance. Wyatt Lin MD Head CTA 10/10/162017 Signed Impressions: Service Date/Time: Monday, October 10, 2016 20:45 - CONCLUSION: Intracranial arteries are within normal limits. Wyatt Lin MD Head CT 10/10/16 0000 Signed Impressions: Service Date/Time: Monday, October 10, 2016 19:23 - CONCLUSION: No acute intracranial abnormality demonstrated. 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 Wyatt Lin MD Chest X-Ray 10/10/16 0000 Signed Impressions: Service Date/Time: Monday, October 10, 2016 19:07 - CONCLUSION: No evidence of acute cardiopulmonary disease. Wyatt Lin MD Objective Remarks Not in distress No carotid bruit bilaterally. Regular rate and rhythm with skipped beats, no murmurs Clear breath sounds Abdomen soft nontender No edema Alert, awake, oriented 3. No focal weakness. Mild left facial droop, no expressive aphasia appreciated. No dysdiadochokinesia, negative for meningeal signs. Judgment is intact. No sensory deficits. A/P Problem List: (1) CVA (cerebral vascular accident) ICD Code: I63.9 Status: Acute (2) Atrial fibrillation with RVR ICD Code: I48.91 Status: Acute (3) CYNTHIA (acute kidney injury) ICD Code: N17.9 Status: Acute (4) Chronic anticoagulation ICD Code: Z79.01 Status: Acute (5) Hyperglycemia ICD Code: R73.9 Status: Acute Assessment and Plan This is an 85-year-old female who presented with expressive aphasia CVA, right frontal lobe-MRI showed right frontal lobe infarct, CT of the neck showed possible right internal carotid artery stenosis. Presently on heparin drip, bridge with Coumadin, previously on Coumadin 2.5 mg daily and 5 mg weekly. Adjust dose as needed. Continue statin, awaiting echocardiogram. Hemoglobin A1c is pending. Consult physical therapy. Mechanical soft diet with thin liquid. Right carotid stenosis-CTA showed carotid stenosis of about 70-80% on the right , about 50% on the left but probably higher. Vascular surgery following, would opt to do CEA, weight 1-2 weeks, follow-up with Dr. Mcguire 10 days after discharge and surgery will be done as outpatient. Anticoagulation as above. Hypothyroidism-TSH low, free T4 elevated, decrease levothyroxine to 100 g daily. Atrial fibrillation, RVR occasionally- anticoagulation as above. Blood pressure stable, heart rate sometimes goes to 120 specially when ambulating, start low-dose metoprolol. Acute kidney insufficiency - creatinine now normal, resolved. Hyperglycemia-no history of diabetes mellitus, follow-up hemoglobin A1c, sliding scale insulin for now Consult physical therapy and speech therapy, might need rehabilitation DVT prophylaxis: Coumadin Discharge Planning Discharged once cleared by neurology likely with home healthcare. Consult physical therapy. Dominique Cardoso MD Oct 12, 2016 09:55
--- NOTE | 2016-10-12 09:59 | HHI.FF ---
Face to Face Verification Diagnosis: (1) CYNTHIA (acute kidney injury) (2) CVA (cerebral vascular accident) (3) Atrial fibrillation with RVR Physical Therapy Order: Evaluate and Treat Home Health Nursing Order: Medical education Signs/symptoms of disease process Medication education-adverse effect I have seen patient Eve Junior on 10/12/16. My clinical findings support the need for the requested home health care services because: Limited ability to care for self I certify that my clinical findings support that this patient is homebound because: Unsteady gait/balance Dominique Cardoso MD Oct 12, 2016 09:59
[2016-10-12] MEDS ORDERED: PILL SPLITTER OTHER PRN (10:00)
--- NOTE | 2016-10-12 11:41 | HHI.PR ---
Objective Vital Signs Date Time Temp Pulse Resp B/P Pulse Ox O2 Delivery O2 Flow Rate FiO2 10/12/16 11:15 92 10/12/16 10:33 89 10/12/16 08:35 104 10/12/16 07:00 110 10/12/16 07:00 93 10/12/16 07:00 98.3 95 16 153/83 95 10/12/16 06:17 86 10/12/16 05:00 76 10/12/16 04:00 80 10/12/16 03:00 74 10/12/16 03:00 98.6 88 16 118/67 91 10/12/16 02:15 72 10/12/16 01:01 76 10/11/16 23:00 98.4 80 15 105/67 94 10/11/16 23:00 71 10/11/16 22:00 74 10/11/16 21:00 80 10/11/16 20:00 82 10/11/16 19:02 92 Nasal Cannula 2.00 10/11/16 19:00 98.5 80 19 158/87 92 10/11/16 19:00 84 10/11/16 18:17 77 10/11/16 17:34 96 10/11/16 16:03 93 10/11/16 15:50 98.3 81 18 126/70 95 10/11/16 15:45 78 10/11/16 14:05 84 10/11/16 13:08 81 I/O 10/11/16 10/11/16 10/11/16 10/12/16 10/12/16 10/12/16 07:00 15:00 23:00 07:00 15:00 23:00 Intake Total 1519 ml 886 ml Output Total 1600 ml 550 ml 775 ml Balance -1600 ml 969 ml 111 ml Intake Oral 150 ml IV Total 1369 ml 886 ml Output Urine Total 1600 ml 550 ml 775 ml Result Diagram: 10/10/16 1907 10/11/16 1352 Objective Remarks much better speech nl less droop 5/5 all 4 ext gait nl Assessment and Plan Assessment and Plan imp inr 1.5 coumadin 5 a day now no greens asa 81 ldl nl cea in two weeks get inr >1.9 and dc then Deyvi Luu MD Oct 12, 2016 11:41
[2016-10-12] MEDS: ASPIRIN 81 MG CHEW TAB PO SCH (11:45)
[2016-10-12] MEDS: DILTIAZEM HCL 30 MG TAB PO SCH ×3 (12:31→21:38)
--- NOTE | 2016-10-12 12:36 | PD.CAR.PN ---
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 As far as the left side is concerned as red as 50% stenosis however there is a lot of calcium there is very hard to tell some going to go over this with the radiologist on Thursday At this point I believe patient should remain on Coumadin and aspirin have aggressive physical and occupational therapy I will see patient for follow-up in about 10 days at which point we gone a repeat MRI of the brain and then all things equal patient will get surgery following MRI, barring any surprises Full consult dictated Thanks J 10/12/16 Patient is neurologically doing better Speech has improved As above noted patient will be able to go home and I will bring her back in about a week or 2 for right carotid endarterectomy proceeded by an MRI Patient is on 5 mg of Coumadin daily and should remain adequately anticoagulated. I will convert her eventually to heparin when she gets readmitted next week Objective: Vital Signs Date Time Temp Pulse Resp B/P Pulse Ox O2 Delivery O2 Flow Rate FiO2 10/12/16 12:05 91 10/12/16 11:44 97.9 89 16 132/70 96 10/12/16 11:15 92 10/12/16 10:33 89 10/12/16 08:35 104 10/12/16 07:00 110 10/12/16 07:00 93 10/12/16 07:00 98.3 95 16 153/83 95 10/12/16 06:17 86 10/12/16 05:00 76 10/12/16 04:00 80 10/12/16 03:00 74 10/12/16 03:00 98.6 88 16 118/67 91 10/12/16 02:15 72 10/12/16 01:01 76 10/11/16 23:00 98.4 80 15 105/67 94 10/11/16 23:00 71 10/11/16 22:00 74 10/11/16 21:00 80 10/11/16 20:00 82 10/11/16 19:02 92 Nasal Cannula 2.00 10/11/16 19:00 98.5 80 19 158/87 92 10/11/16 19:00 84 10/11/16 18:17 77 10/11/16 17:34 96 10/11/16 16:03 93 10/11/16 15:50 98.3 81 18 126/70 95 10/11/16 15:45 78 10/11/16 14:05 84 10/11/16 13:08 81 Labs: Laboratory Tests Test 10/12/16 05:50 Prothrombin Time 17.4 SEC (9.8-11.6) Prothromb Time International 1.5 RATIO Ratio Activated Partial 53.2 SEC Thromboplast Time (24.3-30.1) Result Diagram: 10/10/16 1907 10/11/16 1352 (1) Hyperglycemia (2) CVA (cerebral vascular accident) (3) Chronic anticoagulation (4) Atrial fibrillation with RVR Plan: continue to control rate already on heparin Dr Harvey to follow up in Teofilo Atkins MD Oct 12, 2016 12:35
[2016-10-12 12:42] LABS: HEMOGLOBIN A1b 1.9 %; HEMOGLOBIN Ao 84.8 %; HEMOGLOBIN LA1C 2.1 %; HEMOGLOBIN P3 4.1 %
[2016-10-12] MEDS ORDERED: WARFARIN SOD 5 MG TAB PO SCH (16:00)
[2016-10-12] MEDS: WARFARIN SOD 5 MG TAB PO SCH (17:06)
--- NOTE | 2016-10-12 19:09 | ECHRPT ---
Indication: CVA/TIA CONCLUSIONS There is moderate to severe left ventricular dysfunction. The EF is 25-25%. Wall thickness is normal . Global hypokinesis Mildly dilated left ventricle. Moderate bi-atrial enlargement. Mild to moderate thickening of the mitral valve leaflets. Moderate mitral valve regurgitation Trace aortic valve regurgitation. Aortic valve sclerosis is present without significant stenosis. There is mild to moderate tricuspid valve regurgitation. There is estimated moderate pulmonary hypertension BP: / HR: Rhythm: Atrial fibrillation MEASUREMENTS (Male / Female) Normal Values Technical Quality:Fair 2D ECHO LV Diastolic Diameter PLAX 5.7 cm 4.2 - 5.9 / 3.9 - 5.3 cm LV Systolic Diameter PLAX 5.2 cm IVS Diastolic Thickness 0.9 cm 0.6 - 1.0 / 0.6 - 0.9 cm LVPW Diastolic Thickness 0.6 cm 0.6 - 1.0 / 0.6 - 0.9 cm LV Relative Wall Thickness 0.3 LVOT Diameter 2.4 cm Aortic Root Diameter 3.0 cm LA Systolic Diameter LX 4.2 cm 3.0 - 4.0 / 2.7 - 3.8 cm LA Volume Index 49.4 cm/m 16 - 28 cm/m M-MODE AV Cusp Separation MM 1.2 cm DOPPLER AV Peak Velocity 113.0 cm/s AV Peak Gradient 5.1 mmHg AV Mean Gradient 3.0 mmHg AV Velocity Time Integral 17.5 cm LVOT Peak Velocity 54.6 cm/s LVOT Peak Gradient 1.2 mmHg LVOT Velocity Time Integral 9.7 cm AV Area Cont Eq vti 2.5 cm AV Area Cont Eq pk 2.2 cm LV E' Lateral Velocity 12.2 cm/s LV E' Septal Velocity 8.2 cm/s TR Peak Velocity 356.0 cm/s TR Peak Gradient 50.7 mmHg PV Peak Velocity 57.2 cm/s PV Peak Gradient 1.3 mmHg FINDINGS LEFT VENTRICLE Mildly dilated left ventricle. Wall thickness is normal. There is moderate to severe left ventricular dysfunction. The EF is 25-25%. The septum is more decre ased than the rest of the stubbs.this study was not technically sufficient to allow for evaluation of left ventricular diastolic function. LEFT ATRIUM The left atrial size is moderately dilated. RIGHT ATRIUM The right atrial size is moderately dilated. MITRAL VALVE Mild to moderate thickening of the mitral valve leaflets. Moderate mitral valve regurgitation. AORTIC VALVE Aortic valve sclerosis is present without significant stenosis. Trace aortic valve regurgitation. TRICUSPID VALVE Structurally normal tricuspid valve. There is mild to moderate tricuspid valve regurgitation. There is estimated moderate pulmonary hypertension present PULMONARY VALVE Mild pulmonary valve regurgitation. Aron Lofton MD (Electronically Signed) Final Date:12 October 2016 19:08
[2016-10-12] MEDS: PRAVASTATIN SOD 40 MG TAB PO SCH (21:38)
[2016-10-13] VITALS (27 sets, daily range): BP systolic 138–158; BP diastolic 65–86; PULSE 50–98; RESP 17–18; TEMP 98–99; O2SAT 96
[2016-10-13] MEDS: LEVOTHYROXINE SODIUM 100 MCG TAB PO SCH (05:55)
[2016-10-13] MEDS: SODIUM CHLOR 0.9% 1000 ML INJ 1,000 ML IV SCH ×2 (05:55→20:37)
[2016-10-13 06:55] LABS: HEMATOCRIT 41.1 % (35.0-46.0); MEAN CELL VOLUME 92.9 FL (80.0-100.0); MEAN CORPUSCULAR HEMOGLOBIN 31.4 PG (27.0-34.0); MEAN CORPUSCULAR HGB CONC 33.7 % (32.0-36.0); PLATELET COUNT 120 TH/MM3 (150-450); RED BLOOD COUNT 4.42 MIL/MM3 (4.00-5.30); RED CELL DISTRIBUTION WIDTH 13.2 % (11.6-17.2); REVIEW FLAG FINAL; WHITE BLOOD COUNT 7.8 TH/MM3 (4.0-11.0)
[2016-10-13 07:11] LABS: APTT (PATIENT) 51.6 SEC (24.3-30.1); INTERNATIONAL NORMALIZED RATIO 1.9 RATIO; PROTHROMBIN TIME - PATIENT 21.3 SEC (9.8-11.6)
[2016-10-13] MEDS: HEPARIN-D5W INJ 250 ML IV SCH (07:53)
--- NOTE | 2016-10-13 08:42 | HHI.PR ---
Objective Vital Signs Date Time Temp Pulse Resp B/P Pulse Ox O2 Delivery O2 Flow Rate FiO2 10/13/16 07:00 79 10/13/16 06:15 82 10/13/16 05:14 84 10/13/16 04:00 85 10/13/16 03:30 98.6 85 17 155/86 96 10/13/16 03:00 94 10/13/16 02:00 74 10/13/16 01:00 56 10/13/16 00:08 65 10/12/16 23:22 98.4 59 15 136/66 95 10/12/16 23:00 60 10/12/16 22:32 93 21 10/12/16 22:00 80 10/12/16 21:00 70 10/12/16 20:00 82 10/12/16 19:30 98.2 95 15 134/64 95 10/12/16 19:00 99 10/12/16 18:09 87 10/12/16 17:11 91 10/12/16 16:09 89 10/12/16 15:00 98.6 104 18 176/76 98 10/12/16 15:00 90 10/12/16 14:00 91 10/12/16 13:00 98 10/12/16 12:34 Nasal Cannula 2.00 10/12/16 12:05 91 10/12/16 11:44 97.9 89 16 132/70 96 10/12/16 11:15 92 10/12/16 10:33 89 I/O 10/12/16 10/12/16 10/12/16 10/13/16 10/13/16 10/13/16 07:00 15:00 23:00 07:00 15:00 23:00 Intake Total 886 ml 1250 ml 1339 ml Output Total 775 ml 501 ml 1331 ml Balance 111 ml 749 ml 8 ml Intake Oral 355 ml 60 ml IV Total 886 ml 895 ml 1279 ml Output Urine Total 775 ml 500 ml 1331 ml Stool Total 1 ml Result Diagram: 10/13/16 0445 10/11/16 2472 Objective Remarks much better speech nl less droop 5/5 all 4 ext gait nl no change Assessment and Plan Assessment and Plan imp inr 1.9 coumadin 5 a day now no greens asa 81 ldl nl cea in two weeks get inr >1.9 and dc then maybe recheck later today and will be over 2 then? Deyvi Luu MD Oct 13, 2016 08:42
[2016-10-13] MEDS: SODIUM CHLORIDE 0.9% FLUSH 5 ML FLUSH IV FLUSH SCH ×2 (09:00→20:37)
--- NOTE | 2016-10-13 09:22 | HHI.PR ---
Subjective Remarks Follow-up for CVA Patient feels like she is getting better. She stated that her coordination is improved but still takes time to open certain things. She denies any focal neurological deficits or any focal weakness. Her is at her bedside. No other concerns. Objective Vitals Vital Signs Date Time Temp Pulse Resp B/P Pulse Ox O2 Delivery O2 Flow Rate FiO2 10/13/16 07:00 79 10/13/16 06:15 82 10/13/16 05:14 84 10/13/16 04:00 85 10/13/16 03:30 98.6 85 17 155/86 96 10/13/16 03:00 94 10/13/16 02:00 74 10/13/16 01:00 56 10/13/16 00:08 65 10/12/16 23:22 98.4 59 15 136/66 95 10/12/16 23:00 60 10/12/16 22:32 93 21 10/12/16 22:00 80 10/12/16 21:00 70 10/12/16 20:00 82 10/12/16 19:30 98.2 95 15 134/64 95 10/12/16 19:00 99 10/12/16 18:09 87 10/12/16 17:11 91 10/12/16 16:09 89 10/12/16 15:00 98.6 104 18 176/76 98 10/12/16 15:00 90 10/12/16 14:00 91 10/12/16 13:00 98 10/12/16 12:34 Nasal Cannula 2.00 10/12/16 12:05 91 10/12/16 11:44 97.9 89 16 132/70 96 10/12/16 11:15 92 10/12/16 10:33 89 I/O 10/12/16 10/12/16 10/12/16 10/13/16 10/13/16 10/13/16 06:59 14:59 22:59 06:59 14:59 22:59 Intake Total 886 ml 1250 ml 1339 ml Output Total 775 ml 501 ml 1331 ml Balance 111 ml 749 ml 8 ml Intake Oral 355 ml 60 ml IV Total 886 ml 895 ml 1279 ml Output Urine Total 775 ml 500 ml 1331 ml Stool Total 1 ml Result Diagram: 10/13/16 0445 10/11/16 1352 Imaging Last Impressions Brain MRI 10/11/16 1038 Signed Impressions: Service Date/Time: Tuesday, October 11, 2016 12:08 - CONCLUSION: Acute right frontal lobe infarct which correlates with the patient's expressive aphasia. No other significant abnormalities Mathew Mercer MD Neck CTA 10/10/162017 Signed Impressions: Service Date/Time: Monday, October 10, 2016 20:50 - CONCLUSION: Atherosclerotic plaque of both carotid bifurcations with moderate to severe right and moderate left internal carotid artery stenosis. The right ICA stenosis probably approaches hemodynamic significance. Wyatt Lin MD Head CTA 10/10/162017 Signed Impressions: Service Date/Time: Monday, October 10, 2016 20:45 - CONCLUSION: Intracranial arteries are within normal limits. Wyatt Lin MD Head CT 10/10/16 0000 Signed Impressions: Service Date/Time: Monday, October 10, 2016 19:23 - CONCLUSION: No acute intracranial abnormality demonstrated. 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 Wyatt Lin MD Chest X-Ray 10/10/16 0000 Signed Impressions: Service Date/Time: Monday, October 10, 2016 19:07 - CONCLUSION: No evidence of acute cardiopulmonary disease. Wyatt Lin MD Objective Remarks GENERAL: in NAD SKIN: Warm and dry. HEAD: Normocephalic. EYES: No scleral icterus. No injection or drainage. NECK: Supple, trachea midline. No JVD or lymphadenopathy. CARDIOVASCULAR: Regular rate and rhythm without murmurs, gallops, or rubs. RESPIRATORY: Breath sounds equal bilaterally. No accessory muscle use. GASTROINTESTINAL: Abdomen soft, non-tender, nondistended. NEURO: AAO X 3. strength and sensation grossly intact. Medications and IVs Current Medications Diltiazem HCl 5 mg 5 mg ONCE ONCE IV Last administered on 10/10/16 19:36; Start 10/10/16 at 19:15; Stop 10/10/16 at 19:16; Status DC Heparin Sodium/ Dextrose (Heparin-D5W Inj) 250 ml @ 0 mls/hr TITRATE IV Last administered on 10/13/16 07:53; Start 10/10/16 at 20:15 IV Flush (NS Flush) 2 ml BID IV FLUSH Last administered on 10/12/16 09:00; Start 10/10/16 at 21:00 IV Flush 2 ml 2 ml UNSCH PRN IV FLUSH FLUSH AFTER USING IV ACCESS; Start at 20:30 Sodium Chloride (NS 1000 ml Inj) 1,000 ml @ 70 mls/hr [id number] IV Last administered on 10/13/16 05:55; Start 10/10/16 at 20:28 Labetalol HCl (Trandate Inj) 10 mg Q2H PRN IV For SBP > 220 or DBP > 120; Start 10/10/16 at 22:00 Aspirin (Aspirin Supp) 300 mg DAILY RECTAL ; Start 10/11/16 at 09:00; Stop 10/12 at 11:39; Status DC Pravastatin Sodium (Pravachol) 40 mg HS PO Last administered on 10/12/16 21:38 ; Start 10/10/16 at 21:00 Insulin Aspart (NovoLOG SUPPLEMENTAL SCALE) 1 ACHS SQ ; Start 10/10/16 at 22:00 ; Stop 10/12/16 at 11:48; Status DC Dextrose (D50w (Vial) Inj) 50 ml UNSCH PRN IV PUSH HYPOGLYCEMIA-SEE COMMENTS; Start 10/10/16 at 20:30 Glucagon (Glucagon Inj) 1 mg UNSCH PRN OTHER HYPOGLYCEMIA-SEE COMMENTS; Start 10/10/16 at 20:30 Iohexol (Omnipaque 350 Inj) 75 ml STK-MED ONCE IV Last administered on 20:54; Start 10/10/16 at 20:54; Stop 10/10/16 at 20:58; Status DC Lorazepam (Ativan Inj) 0.5 mg ONCE ONCE IV PUSH Last administered on 10:45; Start 10/11/16 at 10:45; Stop 10/11/16 at 20:34; Status DC Warfarin Sodium (Coumadin) 3 mg DAILY@16 PO Last administered on 10/11/16 16: 20; Start 10/11/16 at 16:00; Stop 10/11/16 at 19:58; Status DC Aspirin (Aspirin) 325 mg ONCE ONCE PO Last administered on 10/11/16 11:15; Start 10/11/16 at 11:15; Stop 10/11/16 at 11:16; Status DC Gadobenate Dimeglumine (Multihance Pf Inj) 10 ml STK-MED ONCE IV Last administered on 10/11/16 12:18; Start 10/11/16 at 12:18; Stop 10/11/16 at 12:19 ; Status DC Levothyroxine Sodium (Synthroid) 100 mcg DAILY@0600 PO Last administered on 05:55; Start 10/12/16 at 06:00 Warfarin Sodium (Coumadin) 5 mg DAILY@16 PO ; Start 10/12/16 at 16:00; Stop at 16:00; Status DC Warfarin Sodium (Coumadin) 2 mg ONCE ONCE PO Last administered on 10/11/16 22 :22; Start 10/11/16 at 21:30; Stop 10/11/16 at 21:31; Status DC Warfarin Sodium (Coumadin) 5 mg DAILY@16 PO Last administered on 10/12/16 17: 06; Start 10/12/16 at 16:00 Diltiazem HCl (Cardizem) 30 mg QID PO Last administered on 10/12/16 21:38; Start 10/12/16 at 13:00 Metoprolol Tartrate (Lopressor) 12.5 mg Q12HR PO Last administered on 21:38; Start 10/12/16 at 09:53 Miscellaneous (Pill Splitter) 1 ea UNSCH PRN OTHER SEE LABEL COMMENTS; Start at 10:00 Aspirin (Aspirin Chew) 81 mg DAILY PO Last administered on 10/12/16 11:45; Start 10/12/16 at 11:45 Influenza Virus Vaccine (Flu (Quadrivalent) Vaccine Inj) 0.5 ml ONCE ONCE IM ; Start 10/13/16 at 10:00; Stop 10/13/16 at 10:00; Status DC A/P Problem List: (1) CVA (cerebral vascular accident) ICD Code: I63.9 Status: Acute (2) Atrial fibrillation with RVR ICD Code: I48.91 Status: Acute (3) CYNTHIA (acute kidney injury) ICD Code: N17.9 Status: Acute (4) Chronic anticoagulation ICD Code: Z79.01 Status: Acute (5) Hyperglycemia ICD Code: R73.9 Status: Acute Assessment and Plan This is an 85-year-old female who presented with expressive aphasia CVA, right frontal lobe -MRI showed right frontal lobe infarct, CT of the neck showed possible right internal carotid artery stenosis. Hemoglobin A1c 5.9. ECHO showed moderate to severe left ventricular dysfunction, EF of 25%, and global hypokinesia. Regulation Supervisor following - Presently on heparin drip, bridge with Coumadin, previously on Coumadin 2.5 mg daily and 5 mg weekly. -Today INR 1.9. Per Dr. Luu can repeat INR today and if above 1.9 can be discharged today with home health. will recheck INR at 3 PM. Right carotid stenosis-CTA showed carotid stenosis of about 70-80% on the right , about 50% on the left but probably higher -Vascular surgery following, would opt to do CEA, weight 1-2 weeks, follow-up with Dr. Mcguire 10 days after discharge and surgery will be done as outpatient. Anticoagulation as above. Cardiomyopathy with EF of 25%/moderate to severe left ventricular dysfunction -Being followed by carpet renovator. Hypothyroidism-TSH low, free T4 elevated, - decrease levothyroxine to 100 g daily. -Repeat Synthroid level at 6 weeks. Atrial fibrillation, RVR occasionally - anticoagulation as above. Blood pressure stable. -Controlled on metoprolol. Acute kidney insufficiency - creatinine now normal, resolved. DVT prophylaxis: Coumadin Discharge Planning Will repeat INR later today and if above 1.9 she is cleared by neurologist. Echo reviewed she will also need to be cleared by her carpet renovator. Glory Mcmanus MD Oct 13, 2016 09:22
[2016-10-13] MEDS: METOPROLOL TARTRATE 25 MG TAB PO SCH ×2 (09:42→20:36)
[2016-10-13] MEDS: ASPIRIN 81 MG CHEW TAB PO SCH (09:42)
[2016-10-13] MEDS: DILTIAZEM HCL 30 MG TAB PO SCH ×4 (09:43→20:36)
[2016-10-13] MEDS ORDERED: INFLUENZA VIRUS VACCINE (QUADRIVALENT) 0.5 ML SYR IM ONE (10:00)
[2016-10-13 15:55] LABS: PROTHROMBIN TIME - PATIENT 22.9 SEC (9.8-11.6)
[2016-10-13] MEDS: WARFARIN SOD 5 MG TAB PO SCH (18:18)
--- NOTE | 2016-10-13 19:10 | PD.CAR.PN ---
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 As far as the left side is concerned as red as 50% stenosis however there is a lot of calcium there is very hard to tell some going to go over this with the radiologist on Thursday At this point I believe patient should remain on Coumadin and aspirin have aggressive physical and occupational therapy I will see patient for follow-up in about 10 days at which point we gone a repeat MRI of the brain and then all things equal patient will get surgery following MRI, barring any surprises Full consult dictated Thanks J 10/12/16 Patient is neurologically doing better Speech has improved As above noted patient will be able to go home and I will bring her back in about a week or 2 for right carotid endarterectomy proceeded by an MRI Patient is on 5 mg of Coumadin daily and should remain adequately anticoagulated. I will convert her eventually to heparin when she gets readmitted next week 10/13/16 Patient is now anticoagulated to INR 1.9 Doing well at this time Patient can be discharged from my point any time and I will see her next week in the office and reassess her at which point she'll have a repeat MRI Based on this will schedule right carotid endarterectomy to follow Objective: Vital Signs Date Time Temp Pulse Resp B/P Pulse Ox O2 Delivery O2 Flow Rate FiO2 10/13/16 18:00 80 10/13/16 17:00 78 10/13/16 16:00 98.0 85 17 142/68 96 10/13/16 16:00 79 10/13/16 15:00 54 10/13/16 14:00 78 10/13/16 13:00 82 10/13/16 12:34 96 10/13/16 12:00 75 10/13/16 11:26 98.1 85 17 138/65 96 10/13/16 11:00 64 10/13/16 10:00 80 10/13/16 09:00 98 10/13/16 08:00 98.6 85 17 155/86 96 10/13/16 08:00 82 10/13/16 07:00 79 10/13/16 06:15 82 10/13/16 05:14 84 10/13/16 04:00 85 10/13/16 03:30 98.6 85 17 155/86 96 10/13/16 03:00 94 10/13/16 02:00 74 10/13/16 01:00 56 10/13/16 00:08 65 10/12/16 23:22 98.4 59 15 136/66 95 10/12/16 23:00 60 10/12/16 22:32 93 21 10/12/16 22:00 80 10/12/16 21:00 70 10/12/16 20:00 82 10/12/16 19:30 98.2 95 15 134/64 95 Labs: Laboratory Tests Test 10/13/16 15:15 Prothrombin Time 22.9 SEC (9.8-11.6) Prothromb Time International 2.0 RATIO Ratio Result Diagram: 10/13/16 0445 10/11/16 1352 (1) Hyperglycemia (2) CVA (cerebral vascular accident) (3) Chronic anticoagulation (4) Atrial fibrillation with RVR Plan: continue to control rate already on heparin Dr Harvey to follow up in [place] Atkins MD Oct 13, 2016 19:10
[2016-10-13] MEDS: PRAVASTATIN SOD 40 MG TAB PO SCH (20:36)
[2016-10-14] VITALS (13 sets, daily range): BP systolic 138–146; BP diastolic 72–93; PULSE 51–97; RESP 18–20; TEMP 97.3–98.9; O2SAT 96–100
[2016-10-14] MEDS: LEVOTHYROXINE SODIUM 100 MCG TAB PO SCH (05:48)
[2016-10-14 06:38] LABS: APTT (PATIENT) 39.9 SEC (24.3-30.1); INTERNATIONAL NORMALIZED RATIO 2.3 RATIO; PROTHROMBIN TIME - PATIENT 26.8 SEC (9.8-11.6)
[2016-10-14] MEDS: METOPROLOL TARTRATE 25 MG TAB PO SCH (08:38)
[2016-10-14] MEDS: DILTIAZEM HCL 30 MG TAB PO SCH ×2 (08:38→13:00)
[2016-10-14] MEDS: ASPIRIN 81 MG CHEW TAB PO SCH (08:38)
[2016-10-14] MEDS ORDERED: COUM5TAB PO (08:56)
[2016-10-14] MEDS ORDERED: METO25TA3 PO (08:56)
[2016-10-14] MEDS ORDERED: CARD120C4 PO (08:56)
--- NOTE | 2016-10-14 08:58 | HHI.DCPOC ---
Discharge Care Plan Diagnosis: (1) Atrial fibrillation with RVR (2) CHF (congestive heart failure) (3) CYNTHIA (acute kidney injury) (4) Chronic anticoagulation (5) CVA (cerebral vascular accident) Goals to Promote Your Health * To prevent worsening of your condition and complications * To maintain your health at the optimal level Directions to Meet Your Goals Take your medications as prescribed Follow your dietary instruction Follow activity as directed Keep your appointments as scheduled Take your immunizations and boosters as scheduled If your symptoms worsen call your PCP, if no PCP go to Urgent Care Center or Emergency Room Smoking is Dangerous to Your Health. Avoid second hand smoke Call the 24-hour hour crisis hotline for domestic abuse at Glory Mcmanus MD Oct 14, 2016 08:58
--- NOTE | 2016-10-14 08:59 | HHI.DS ---
Discharge Summary Admission Date Oct 10, 2016 at 20:26 Discharge Date: Oct 14, 2016 Admitting Diagnosis stroke, afib rvr (1) CVA (cerebral vascular accident) ICD Code: I63.9 Diagnosis: Principal (2) Atrial fibrillation with RVR ICD Code: I48.91 Diagnosis: Principal (3) CYNTHIA (acute kidney injury) ICD Code: N17.9 Diagnosis: Principal (4) Chronic anticoagulation ICD Code: Z79.01 Diagnosis: Secondary (5) Hyperglycemia ICD Code: R73.9 Diagnosis: Secondary Procedures see hospital course Brief History - From Admission This is an 85-year-old female with a PMH of A. fib on Coumadin, HTN, Hyperlipidemia and Hypothyroidism who presented to the ER with strokelike symptoms starting approximately 40min prior to arrival. States she couldn't say the word "fork", noted by to have slight slurred speech, symptoms persistent. On arrival, BP 145/99, HR 133, O2 sat 93% on RA, Afebrile. Stroke Scale 2. Noted to be in A. fib with RVR, s/p Cardizem 5mg w/ HR now 85. CT Head w/ no acute findings, bifrontal cystic hygromas. Dr. Luu consulted, given low stroke scale and Coumadin therapy, no Stroke Alert initiated. Recommended CTA Head/Neck, currently pending. CBC unremarkable. Chemistry unremarkable except for creatinine 1.21, previously 0.91 07/31/11. BS 202. Troponin negative. CXR with no acute findings. CBC/BMP: 10/13/16 0445 10/11/16 1352 Significant Findings Laboratory Tests Test 10/11/16 10/11/16 10/12/16 10/13/16 10:47 13:52 05:50 04:45 Prothrombin Time 18.1 SEC 17.4 SEC 21.3 SEC (9.8-11.6) (9.8-11.6) (9.8-11.6) Activated Partial 49.7 SEC 53.2 SEC 51.6 SEC Thromboplast Time (24.3-30.1) (24.3-30.1) (24.3-30.1) Chloride Level 108 MEQ/L (98-107) Estimat Glomerular Filtration 60 ML/MIN (>89) Rate Free Thyroxine 1.70 NG/DL (0.76-1.46) Platelet Count 120 TH/MM3 (150-450) Test 10/13/16 10/14/16 15:15 05:00 Prothrombin Time 22.9 SEC 26.8 SEC (9.8-11.6) (9.8-11.6) Activated Partial 39.9 SEC Thromboplast Time (24.3-30.1) Imaging Last Impressions Brain MRI 10/11/16 1038 Signed Impressions: Service Date/Time: Tuesday, October 11, 2016 12:08 - CONCLUSION: Acute right frontal lobe infarct which correlates with the patient's expressive aphasia. No other significant abnormalities Mathew Mercer MD Neck CTA 10/10/162017 Signed Impressions: Service Date/Time: Monday, October 10, 2016 20:50 - CONCLUSION: Atherosclerotic plaque of both carotid bifurcations with moderate to severe right and moderate left internal carotid artery stenosis. The right ICA stenosis probably approaches hemodynamic significance. Wyatt Lin MD Head CTA 10/10/162017 Signed Impressions: Service Date/Time: Monday, October 10, 2016 20:45 - CONCLUSION: Intracranial arteries are within normal limits. Wyatt Lin MD Head CT 10/10/16 0000 Signed Impressions: Service Date/Time: Monday, October 10, 2016 19:23 - CONCLUSION: No acute intracranial abnormality demonstrated. 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 Wyatt Lin MD Chest X-Ray 10/10/16 0000 Signed Impressions: Service Date/Time: Monday, October 10, 2016 19:07 - CONCLUSION: No evidence of acute cardiopulmonary disease. Wyatt Lin MD PE at Discharge GENERAL: in NAD SKIN: Warm and dry. HEAD: Normocephalic. EYES: No scleral icterus. No injection or drainage. NECK: Supple, trachea midline. No JVD or lymphadenopathy. CARDIOVASCULAR: Regular rate and rhythm without murmurs, gallops, or rubs. RESPIRATORY: Breath sounds equal bilaterally. No accessory muscle use. GASTROINTESTINAL: Abdomen soft, non-tender, nondistended. NEURO: AAO X 3. strength and sensation grossly intact. Pt update on day of discharge see progress note on day of discharge Hospital Course This is an 85-year-old female who presented with expressive aphasia CVA, right frontal lobe -MRI showed right frontal lobe infarct, CT of the neck showed possible right internal carotid artery stenosis. Hemoglobin A1c 5.9. ECHO showed moderate to severe left ventricular dysfunction, EF of 25%, and global hypokinesia. Platen Grinder following - she was put on heparin drip, bridge with Coumadin, previously on Coumadin 2.5 mg daily and 5 mg weekly. -INR 2.3 on day of discharge so at goal. -Patient told will need to follow-up closely with her INR in 2-3 to assure stabilization. She stated that she can get this done at the holter technician this . Right carotid stenosis-CTA showed carotid stenosis of about 70-80% on the right , about 50% on the left but probably higher -Vascular surgery following, would opt to do CEA, weight 1-2 weeks, follow-up with Dr. Mcguire 10 days after discharge and surgery will be done as outpatient. Anticoagulation as above. Cardiomyopathy with EF of 25%/moderate to severe left ventricular dysfunction -Being followed by holter technician. Hypothyroidism-TSH low, free T4 elevated, - Patient was taking levothyroxine 100 g at home. due to increase T 4 and going into a fib with RVR dosage decreased to 88 g daily. She needs repeat TSH and 4-6 weeks. Patient is aware of the management. Coronary artery disease status post CABG -Patient is on aspirin, metoprolol. Atrial fibrillation, RVR occasionally - anticoagulation as above. Blood pressure stable. -Controlled on metoprolol. Acute kidney insufficiency -most likely due to hypoperfusion from a fib with RVR. - resolved during hospitalization. Pt Condition on Discharge: Stable Discharge Disposition: Disch w/ Home Health Serv Discharge Time: > 30 minutes Discharge Instructions DIET: Follow Instructions for: Heart Healthy Diet Speech Therapy-Diet Recommends: Mechanical Soft, Chopped Meat w/Gravy Additional Diet Instructions: coumadin diet Activities you can perform: Regular-No Restrictions Follow up Referrals: Cardiology - 1 Week Neurology - 3 Weeks PCP Follow-up - 1 Week Vascular Surgery - 10 Days with Teofilo Nunez MD New Orders: PT/INR - Next Day New Medications: Diltiazem CD 24 HR (Cardizem CD 24 HR) 120 Mg Caper 120 MG PO DAILY atrial fibrillation #30 Ref 0 CAP Levothyroxine (Levothyroxine) 88 Mcg Tab 88 MCG PO DAILY Thyroid #30 Ref 0 TAB Metoprolol Tartrate (Metoprolol Tartrate) 25 Mg Tab 12.5 MG PO Q12HR atrial fibrillation #30 Ref 0 TAB Warfarin (Coumadin) 5 Mg Tab 5 MG PO DAILY@16 need to repeat INR in 2-3 days to assure stability. Goal INR 2- 3. CVA #5 Ref 0 TAB Continued Medications: Aspirin DR (Aspir-81) 81 Mg Tabdr Cholecalciferol (Vitamin D) 400 Unit Cap Simvastatin (Zocor) 20 Mg Tab 20 MG PO DAILY Cholesterol Management #30 Ref 0 TAB Discontinued Medications: Levothyroxine (Levoxyl) 100 Mcg Tab 100 MCG PO DAILY Thyroid #30 Ref 0 TAB Levothyroxine (Synthroid) 25 Mcg Tab 25 MCG PO DAILY Thyroid #30 Ref 0 TAB Warfarin (Warfarin) 2.5 Mg Tab 2.5 MG PO DAILY Blood Clot Prevention #30 Ref 0 TAB Glory Mcmanus MD Oct 14, 2016 08:59
[2016-10-14] MEDS ORDERED: LEVO88TA2 PO (09:13)
--- NOTE | 2016-10-14 10:42 | HHI.FF ---
Face to Face Verification Diagnosis: (1) Atrial fibrillation with RVR (2) CHF (congestive heart failure) (3) CYNTHIA (acute kidney injury) (4) CVA (cerebral vascular accident) (5) Slurred speech Physical Therapy Order: Evaluate and Treat, Improve ambulation, Strength and gait training Speech Therapy Order: To Improve: Speech and communication skills, Cognitive skills, Swallowing Home Health Nursing Order: Medical education Signs/symptoms of disease process CHF education Medication education-adverse effect Nursing assessment with vital signs I have seen patient Eve Junior on 10/14/16. My clinical findings support the need for the requested home health care services because: Ltd mobility - disease progression Deconditioned w/ increased weakness Impaired cognition/judgement I certify that my clinical findings support that this patient is homebound because: Impaired cognitive ability/safety Need for psychosocial assistance Poor cardiac reserve Glory Mcmanus MD Oct 14, 2016 10:42
--- NOTE | 2016-10-14 13:04 | HHI.PR ---
Subjective Remarks Follow-up for CVA. Patient stated that she is doing better. She denies any new focal neurological deficit. Denied chest pain, tightness breathing, palpitation, lightheadedness or dizziness. Patient brought in her med list and she is on at home [address] Nguyen this for exercise stress test. Her is at the bedside during the interview. Objective Vitals Vital Signs Date Time Temp Pulse Resp B/P Pulse Ox O2 Delivery O2 Flow Rate FiO2 10/14/16 11:00 97.9 51 20 138/72 96 10/14/16 11:00 51 10/14/16 10:00 78 10/14/16 09:30 97 21 10/14/16 09:00 90 10/14/16 08:00 84 10/14/16 07:00 66 10/14/16 07:00 97.3 97 20 142/83 100 10/14/16 06:00 66 10/14/16 05:00 66 10/14/16 04:00 72 10/14/16 04:00 98.7 72 18 146/93 96 10/14/16 03:00 63 10/14/16 02:00 65 10/14/16 01:00 63 10/14/16 00:00 60 10/14/16 00:00 98.9 61 18 146/79 96 10/13/16 23:00 56 10/13/16 22:00 50 10/13/16 21:00 66 10/13/16 20:00 74 10/13/16 20:00 99.0 78 18 158/75 96 10/13/16 19:00 74 10/13/16 18:00 80 10/13/16 17:00 78 10/13/16 16:00 98.0 85 17 142/68 96 10/13/16 16:00 79 10/13/16 15:00 54 10/13/16 14:00 78 I/O 10/13/16 10/13/16 10/13/16 10/14/16 10/14/16 10/14/16 07:00 15:00 23:00 07:00 15:00 23:00 Intake Total 1339 ml 1711 ml 960 ml Output Total 1331 ml 1210 ml 725 ml Balance 8 ml 501 ml 235 ml Intake Oral 60 ml 775 ml 120 ml IV Total 1279 ml 936 ml 840 ml Output Urine Total 1331 ml 1210 ml 725 ml # Bowel Movements 1 Result Diagram: 10/13/16 0445 10/11/16 1352 Imaging Last Impressions Brain MRI 10/11/16 1038 Signed Impressions: Service Date/Time: Tuesday, October 11, 2016 12:08 - CONCLUSION: Acute right frontal lobe infarct which correlates with the patient's expressive aphasia. No other significant abnormalities Mathew Mercer MD Neck CTA 10/10/162017 Signed Impressions: Service Date/Time: Monday, October 10, 2016 20:50 - CONCLUSION: Atherosclerotic plaque of both carotid bifurcations with moderate to severe right and moderate left internal carotid artery stenosis. The right ICA stenosis probably approaches hemodynamic significance. Wyatt Lin MD Head CTA 10/10/162017 Signed Impressions: Service Date/Time: Monday, October 10, 2016 20:45 - CONCLUSION: Intracranial arteries are within normal limits. Wyatt Lin MD Head CT 10/10/16 0000 Signed Impressions: Service Date/Time: Monday, October 10, 2016 19:23 - CONCLUSION: No acute intracranial abnormality demonstrated. 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 Wyatt Lin MD Chest X-Ray 10/10/16 0000 Signed Impressions: Service Date/Time: Monday, October 10, 2016 19:07 - CONCLUSION: No evidence of acute cardiopulmonary disease. Wyatt Lin MD Objective Remarks GENERAL: in NAD SKIN: Warm and dry. HEAD: Normocephalic. EYES: No scleral icterus. No injection or drainage. NECK: Supple, trachea midline. No JVD or lymphadenopathy. CARDIOVASCULAR: Regular rate and rhythm without murmurs, gallops, or rubs. RESPIRATORY: Breath sounds equal bilaterally. No accessory muscle use. GASTROINTESTINAL: Abdomen soft, non-tender, nondistended. NEURO: AAO X 3. strength and sensation grossly intact. Medications and IVs Current Medications Diltiazem HCl 5 mg 5 mg ONCE ONCE IV Last administered on 10/10/16 19:36; Start 10/10/16 at 19:15; Stop 10/10/16 at 19:16; Status DC Heparin Sodium/ Dextrose (Heparin-D5W Inj) 250 ml @ 0 mls/hr TITRATE IV Last administered on 10/13/16 07:53; Start 10/10/16 at 20:15; Stop 10/14/16 at 07:57 ; Status DC IV Flush (NS Flush) 2 ml BID IV FLUSH Last administered on 10/13/16 09:00; Start 10/10/16 at 21:00 IV Flush 2 ml 2 ml UNSCH PRN IV FLUSH FLUSH AFTER USING IV ACCESS; Start at 20:30 Sodium Chloride (NS 1000 ml Inj) 1,000 ml @ 70 mls/hr [id number] IV Last administered on 10/13/16 20:37; Start 10/10/16 at 20:28 Labetalol HCl (Trandate Inj) 10 mg Q2H PRN IV For SBP > 220 or DBP > 120; Start 10/10/16 at 22:00 Aspirin (Aspirin Supp) 300 mg DAILY RECTAL ; Start 10/11/16 at 09:00; Stop 10/12 at 11:39; Status DC Pravastatin Sodium (Pravachol) 40 mg HS PO Last administered on 10/13/16 20:36 ; Start 10/10/16 at 21:00 Insulin Aspart (NovoLOG SUPPLEMENTAL SCALE) 1 ACHS SQ ; Start 10/10/16 at 22:00 ; Stop 10/12/16 at 11:48; Status DC Dextrose (D50w (Vial) Inj) 50 ml UNSCH PRN IV PUSH HYPOGLYCEMIA-SEE COMMENTS; Start 10/10/16 at 20:30 Glucagon (Glucagon Inj) 1 mg UNSCH PRN OTHER HYPOGLYCEMIA-SEE COMMENTS; Start 10/10/16 at 20:30 Iohexol (Omnipaque 350 Inj) 75 ml STK-MED ONCE IV Last administered on 20:54; Start 10/10/16 at 20:54; Stop 10/10/16 at 20:58; Status DC Lorazepam (Ativan Inj) 0.5 mg ONCE ONCE IV PUSH Last administered on 10:45; Start 10/11/16 at 10:45; Stop 10/11/16 at 20:34; Status DC Warfarin Sodium (Coumadin) 3 mg DAILY@16 PO Last administered on 10/11/16 16: 20; Start 10/11/16 at 16:00; Stop 10/11/16 at 19:58; Status DC Aspirin (Aspirin) 325 mg ONCE ONCE PO Last administered on 10/11/16 11:15; Start 10/11/16 at 11:15; Stop 10/11/16 at 11:16; Status DC Gadobenate Dimeglumine (Multihance Pf Inj) 10 ml STK-MED ONCE IV Last administered on 10/11/16 12:18; Start 10/11/16 at 12:18; Stop 10/11/16 at 12:19 ; Status DC Levothyroxine Sodium (Synthroid) 100 mcg DAILY@0600 PO Last administered on 05:48; Start 10/12/16 at 06:00 Warfarin Sodium (Coumadin) 5 mg DAILY@16 PO ; Start 10/12/16 at 16:00; Stop at 16:00; Status DC Warfarin Sodium (Coumadin) 2 mg ONCE ONCE PO Last administered on 10/11/16 22 :22; Start 10/11/16 at 21:30; Stop 10/11/16 at 21:31; Status DC Warfarin Sodium (Coumadin) 5 mg DAILY@16 PO Last administered on 10/13/16 18: 18; Start 10/12/16 at 16:00 Diltiazem HCl (Cardizem) 30 mg QID PO Last administered on 10/14/16 08:38; Start 10/12/16 at 13:00 Metoprolol Tartrate (Lopressor) 12.5 mg Q12HR PO Last administered on 08:38; Start 10/12/16 at 09:53 Miscellaneous (Pill Splitter) 1 ea UNSCH PRN OTHER SEE LABEL COMMENTS; Start at 10:00 Aspirin (Aspirin Chew) 81 mg DAILY PO Last administered on 10/14/16 08:38; Start 10/12/16 at 11:45 Influenza Virus Vaccine (Flu (Quadrivalent) Vaccine Inj) 0.5 ml ONCE ONCE IM ; Start 10/13/16 at 10:00; Stop 10/13/16 at 10:00; Status DC A/P Problem List: (1) CVA (cerebral vascular accident) ICD Code: I63.9 Status: Acute (2) Atrial fibrillation with RVR ICD Code: I48.91 Status: Acute (3) CYNTHIA (acute kidney injury) ICD Code: N17.9 Status: Acute (4) Chronic anticoagulation ICD Code: Z79.01 Status: Acute (5) Hyperglycemia ICD Code: R73.9 Status: Acute Assessment and Plan This is an 85-year-old female who presented with expressive aphasia CVA, right frontal lobe -MRI showed right frontal lobe infarct, CT of the neck showed possible right internal carotid artery stenosis. Hemoglobin A1c 5.9. ECHO showed moderate to severe left ventricular dysfunction, EF of 25%, and global hypokinesia. Prospecting Driller following - Presently on heparin drip, bridge with Coumadin, previously on Coumadin 2.5 mg daily and 5 mg weekly. -Today INR 2.3. -Patient told will need to follow-up closely with her INR in 2-3 to assure stabilization. She stated that she can get this done at the nephrology nurse this . Right carotid stenosis-CTA showed carotid stenosis of about 70-80% on the right , about 50% on the left but probably higher -Vascular surgery following, would opt to do CEA, weight 1-2 weeks, follow-up with Dr. Mcguire 10 days after discharge and surgery will be done as outpatient. Anticoagulation as above. Cardiomyopathy with EF of 25%/moderate to severe left ventricular dysfunction -Being followed by nephrology nurse. Hypothyroidism-TSH low, free T4 elevated, - Patient was taking levothyroxine 100 g at home. Will decrease dosage to 88 g daily. She needs repeat TSH and 4-6 weeks. Patient is aware of the management. Coronary artery disease status post CABG -Patient is on aspirin, metoprolol. Atrial fibrillation, RVR occasionally - anticoagulation as above. Blood pressure stable. -Controlled on metoprolol. Acute kidney insufficiency - creatinine now normal, resolved. DVT prophylaxis: Coumadin Discharge Planning Pending clearance from nephrology nurse before discharge. Patient be discharged home with home health. Glory Mcmanus MD Oct 14, 2016 13:04
== END 2016-10-14 14:25 | disposition home health service (06) | DRG 65 ==
LOC: NEPC 18:56 → NEDA 20:26 → HCIN 21:48
PROVIDERS: ADMIT Family Medicine; ATTEND Family Medicine
DX: I63.9 Cerebral infarction, unspecified (principal); I42.9 Cardiomyopathy, unspecified; I48.2 Chronic atrial fibrillation; R47.01 Aphasia; N28.9 Disorder of kidney and ureter, unspecified; E78.5 Hyperlipidemia, unspecified; E03.9 Hypothyroidism, unspecified; I10 Essential (primary) hypertension; Z79.01 Long term (current) use of anticoagulants; R73.9 Hyperglycemia, unspecified; R29.810 Facial weakness; R47.81 Slurred speech; I65.21 Occlusion and stenosis of right carotid artery; Z79.82 Long term (current) use of aspirin; I25.10 Atherosclerotic heart disease of native coronary artery without angina pectoris; Z95.1 Presence of aortocoronary bypass graft
CPT/HCPCS: 70450; 70496; 70498; 70553; 71010; 80048; 80053; 80061; 81001; 82435; 82550; 82552; 82565; 82607; 82947; 82948; 83036; 84132; 84295; 84439; 84443; 84484; 84520; 85025; 85027; 85610; 85730; 86850; 86900; 86901; 93005; 93306; 96374; A9577; J1644; J2060; J7030; Q9967

== ENCOUNTER 2016-11-04 13:58 | Inpatient (IN) | payer MEDICARE ==
[~2016-11-04] VITALS: Ht 167.6 cm; Wt 65.0 kg
[~2016-11-04 13:58] MED LIST changes: +ASPI81TA81; +COUM5TAB PO; -ENOX40P SC; -LEVO100T60 PO; +LEVO88TA2 PO; -LORT5TAB PO; -NORV10TA OR; -PACE100T2 PO; -SIMV20 PO; -ST J81CH PO; +ZOCO20TA PO
[2016-11-07] VITALS (12 sets, daily range): BP systolic 126–164; BP diastolic 52–99; PULSE 58–98; RESP 14–20; TEMP 97.8–98.5; O2SAT 95–99
[2016-11-07] MEDS ORDERED: POVIDONE IODINE 5% (ANTISEPSIS KIT) 4 APPLICATIONS EACH NARE PRN (09:45)
[2016-11-07] MEDS ORDERED: METOPROLOL TARTRATE 25 MG TAB PO PRN (09:45)
[2016-11-07] MEDS ORDERED: INSULIN HUMAN REGULAR 1,000 UNITS/10 ML VIAL SQ PRN (09:45)
[2016-11-07] MEDS ORDERED: SODIUM CHLORID 0.9% 500 ML IV PRN (09:45)
[2016-11-07] MEDS ORDERED: LACTATED RINGER'S 1000 ML IV PRN (09:45)
[2016-11-07] MEDS ORDERED: CHLORHEXIDINE GLUCONATE 2 % 1 PACK (2 CLOTHS) TOPICAL PRN (09:45)
[2016-11-07] MEDS ORDERED: HEPARIN SODIUM - SQ 10,000 UNITS/ML VIAL ONE (09:53)
[2016-11-07] MEDS ORDERED: LIDOCAINE HCL 1% 50 ML VIAL ONE (09:54)
[2016-11-07] MEDS ORDERED: PROTAMINE SULFATE 50 MG/5 ML VIAL ONE (09:54)
[2016-11-07] MEDS ORDERED: HEPARIN SODIUM - IV 10,000 UNITS/10 ML VIAL ONE (09:54)
[2016-11-07 10:09] LABS: AUTOMATED NEUTROPHIL # 3.8 TH/MM3 (1.8-7.7); BASOPHIL % 0.4 % (0.0-2.0); EOSINOPHIL # 0.1 TH/MM3 (0-0.4); EOSINOPHIL % 1.8 % (0.0-4.0); HEMATOCRIT 42.3 % (35.0-46.0); HEMO FLAGS DIFF FINAL; LYMPH % 22.3 % (9.0-44.0); LYMPHOCYTE # 1.4 TH/MM3 (1.0-4.8); MEAN CELL VOLUME 92.2 FL (80.0-100.0); MEAN CORPUSCULAR HEMOGLOBIN 31.3 PG (27.0-34.0); MONO % 12.5 % (0.0-8.0); PLATELET COUNT 140 TH/MM3 (150-450); RED BLOOD COUNT 4.59 MIL/MM3 (4.00-5.30); RED CELL DISTRIBUTION WIDTH 13.6 % (11.6-17.2); WHITE BLOOD COUNT 6.1 TH/MM3 (4.0-11.0)
[2016-11-07 10:17] LABS: INTERNATIONAL NORMALIZED RATIO 1.5 RATIO; PROTHROMBIN TIME - PATIENT 17.4 SEC (9.8-11.6)
[2016-11-07 10:28] LABS: BICARBONATE 27.4 MEQ/L (21.0-32.0); POTASSIUM 4.2 MEQ/L (3.5-5.1)
--- NOTE | 2016-11-07 10:44 | RADRPT ---
EXAM DATE/TIME: 11/07/2016 09:48 [facility] COMPARISON: CHEST SINGLE AP, October 10, 2016, 19:07. INDICATIONS : Evaluate for pneumonia, pneumothorax, and communicable disease. Pre-op for right carotid endarterect guillermo. MEDICAL HISTORY : A-Fib. SURGICAL HISTORY : CABG. Left breast biopsy. ENCOUNTER: Initial ACUITY: 1 day PAIN SCORE: 0/10 LOCATION: chest FINDINGS: A single view of the chest demonstrates the lungs to be symmetrically aerated without evidence of mas s, infiltrate or effusion. The cardiomediastinal contours are unremarkable. Sternotomy wires noted.. CONCLUSION: No acute disease. Wyatt Sifuentes MD on November 07, 2016 at 10:42 Board Certified Radiologist. This report was verified electronically.
[2016-11-07] MEDS ORDERED: SUGAMMADEX SODIUM 200 MG/2 ML VIAL IV PUSH ONE ×2 (10:58)
[2016-11-07] MEDS ORDERED: SODIUM CHLOR 0.9% 1000 ML INJ 1,000 ML IV SCH (14:25)
[2016-11-07] MEDS ORDERED: ONDANSETRON HCL 4 MG/2 ML VIAL IV PRN (14:30)
[2016-11-07] MEDS ORDERED: MORPHINE SULFATE 4 MG/ML INJ IV PRN (14:30)
[2016-11-07] MEDS ORDERED: Post-op Orders (for Pharmacy) MISC XX ONE (14:30)
[2016-11-07] MEDS ORDERED: SODIUM CHLORIDE 0.9% FLUSH 10 ML FLUSH IV FLUSH PRN (14:30)
[2016-11-07] MEDS ORDERED: NALOXONE HCL 0.4 MG/ML AMP IV PRN (14:30)
[2016-11-07] MEDS ORDERED: DO NOT ADM ANY ANTICOAGULANT DRUGS PRN (14:30)
[2016-11-07] MEDS ORDERED: oxyCODONE/ACETAMINOPHEN 5 MG/325 MG TAB PO PRN (14:30)
[2016-11-07] MEDS ORDERED: *morphine SULFATE 8 MG/ML PERIprocedure ONLY ONE (14:44)
[2016-11-07] MEDS ORDERED: *ONDANSETRON 4 MG VIAL PERIprocedural Use ONLY ONE (14:49)
[2016-11-07] MEDS ORDERED: fentaNYL CITRATE 250 MCG/5 ML AMP ONE (15:56)
[2016-11-07] MEDS ORDERED: PANTOPRAZOLE SOD 40 MG DELAYED RELEASE TAB PO SCH (16:00)
[2016-11-07] MEDS: niCARdipine 25 MG/250 ML IVPB IV SCH ×2 (18:18)
[2016-11-07] MEDS: DOCUSATE SODIUM 100 MG CAP PO SCH (20:28)
[2016-11-07] MEDS: SODIUM CHLORIDE 0.9% FLUSH 10 ML FLUSH IV FLUSH SCH (20:28)
[2016-11-08 03:45] VITALS: PULSE 71
[2016-11-08 03:59] VITALS: BP_SYST 135; BP_SYST 141; BP_DIAS 53; BP_DIAS 71; PULSE 78; RESP 16; TEMP 98.2; O2SAT 96
[2016-11-08] MEDS ORDERED: LEVOTHYROXINE SODIUM 88 MCG TAB PO SCH (06:00)
[2016-11-08 07:01] VITALS: PULSE 74
[2016-11-08 07:19] VITALS: BP_SYST 139; BP_SYST 147; BP_DIAS 55; BP_DIAS 82; PULSE 64; RESP 14; TEMP 98.4; O2SAT 97
[2016-11-08 07:50] VITALS: O2SAT 97
[2016-11-08] MEDS ORDERED: WARFARIN SOD 5 MG TAB PO ONE (08:00)
[2016-11-08] MEDS ORDERED: PRAVASTATIN SOD 40 MG TAB PO SCH (09:00)
[2016-11-08] MEDS: SODIUM CHLORIDE 0.9% FLUSH 10 ML FLUSH IV FLUSH SCH (09:00)
[2016-11-08] MEDS: niCARdipine 25 MG/250 ML IVPB IV SCH ×2 (09:12)
[2016-11-08] MEDS: DOCUSATE SODIUM 100 MG CAP PO SCH (09:13)
[2016-11-08] MEDS ORDERED: OXYC1TAB63 PO (10:34)
--- NOTE | 2016-11-08 12:24 | PD.CAR.PN ---
CVT Progress Note Subjective/Hospital Course: Patient status post right carotid endarterectomy Incisions clean and dry Patient is fully neurologically intact Remove MANI and Bennett Blood pressure is controlled with oral antihypertensives Patient to be discharged today Follow-up in my office in 2-3 weeks Objective: Vital Signs Date Time Temp Pulse Resp B/P Pulse Ox O2 Delivery O2 Flow Rate FiO2 11/08/16 08:15 98 Nasal Cannula 11/08/16 07:50 97 Nasal Cannula 2.00 11/08/16 07:19 98.4 64 14 139/82 97 147/55 11/08/16 07:01 74 11/08/16 03:59 98.2 78 16 135/71 96 141/53 11/08/16 03:45 71 11/07/16 23:00 97.8 58 16 126/62 95 129/52 11/07/16 23:00 74 11/07/16 20:50 97 Nasal Cannula 2.00 11/07/16 19:20 97.9 82 16 155/82 99 159/63 11/07/16 19:20 99 Nasal Cannula 2.00 11/07/16 19:00 74 11/07/16 18:02 73 11/07/16 17:50 72 11/07/16 17:19 68 11/07/16 16:35 72 11/07/16 16:28 75 11/07/16 16:00 95 Nasal Cannula 2.00 11/07/16 15:45 98.4 80 14 143/76 98 144/62 11/07/16 15:00 97.8 77 16 140/65 98 Nasal Cannula 2 11/07/16 14:45 70 16 151/73 98 Nasal Cannula 2 11/07/16 14:30 71 16 154/72 98 Nasal Cannula 2 11/07/16 14:15 71 16 159/71 98 Nasal Cannula 2 11/07/16 14:00 67 15 163/75 98 Nasal Cannula 2 11/07/16 13:45 63 15 161/68 98 Nasal Cannula 2 11/07/16 13:36 97.4 68 15 134/65 98 Nasal Cannula 2 Result Diagram: 11/07/16 0950 11/07/16 0950 Teofilo Nunez MD Nov 08, 2016 12:24
--- NOTE | 2016-11-09 19:04 | MP ---
cc: MD CORA,TIFFANY DATE OF SURGERY: 11/07/2016. PREOPERATIVE DIAGNOSIS: 1. Previous stroke. 2. Critical right internal carotid artery stenosis. POSTOPERATIVE DIAGNOSIS: 1. Previous stroke. 2. Critical right internal carotid artery stenosis. OPERATIVE PROCEDURE PERFORMED: Right carotid endarterectomy and patch angioplasty. SURGEON: Tiffany Nunez M.D. ANESTHESIA: General. ESTIMATED BLOOD LOSS: 100 mL. INDICATIONS FOR THE PROCEDURE: This 85-year-old lady, who is otherwise ad in relatively good health and functioning normally, sustained a right hemispheric stroke about three weeks ago. At that point she was worked up and found to have a right tight internal carotid artery stenosis and about 50% left stenosis. The patient is now scheduled for carotid endarterectomy. DESCRIPTION OF THE PROCEDURE IN DETAIL: The patient was prepped and draped in the usual fashion. A right pre-sternocleidomastoid muscle incision was made and deepened down through the plastyma and into the carotid sheath, which was opened. The common carotid and internal and external carotid arteries were isolated with sharp and blunt dissection and then umbilical tape with Rumel retractors placed on each. The patient was given 5000 units of heparin. Weitlaner and Iron Workforce Planning Analyst upper arm retractors were placed. The hypoglossal nerve was carefully identified and preserved. The plaque was felt to be extending to about 1 to 1-1/2 inches into the internal carotid artery by palpation. Clamps were now applied, bulldog to internal carotid artery and angled [place] to common carotid artery. The vessel was opened longitudinally with Pate scissors and then an [place] shunt placed and the Rumel cinched down. The vessel was now explored. There was a large plaque, which was prominent at the bifurcation itself where is near occluded the vessel actually. The plaque was now dissected in the media plane using a [place] dissector and then the entire plaque was removed in one piece. It peeled off fairly well in the internal carotid artery and then had to be trimmed in the common carotid. Nonetheless, one 7-0 Prolene was placed on the posterior intima of the internal carotid artery. The vessel was now cleaned from debris using heparin flushes and [place]. A bovine 8 mm patch was now chosen and sewn in with running 6-0 Prolene. Prior to completing the arterial repair, the [place] shunt was removed. The repair was completed and then blood flow was re-established in the usual order and fashion making sure there was no embolization into the brain. The flow was now checked with Doppler. Meticulous hemostasis was obtained. A #7 Flat Patrice-Diaz drain was placed. The incision was closed in layers with 2-0 Vicryl and 4-0 subcuticular Monocryl. The patient tolerated the procedure well. Tiffany CAMPO/IDALIA /4:30 PM /6:45 PM
== END 2016-11-08 12:45 | disposition home or self-care (01) | DRG 39 ==
LOC: HSDI 11-07 09:26 → HCVR 11-07 15:40
PROVIDERS: ADMIT Surgery; ATTEND Surgery
PROC: 03CH0ZZ Extirpation of Matter from Right Common Carotid Artery, Open Approach (ICD-10-PCS; 2016-11-07)
PROC: 03UK0JZ Supplement Right Internal Carotid Artery with Synthetic Substitute, Open Approach (ICD-10-PCS; 2016-11-07)
PROC: 03CK0Z6 (ICD-10-PCS; principal; 2016-11-07 11:06)
DX: I65.21 Occlusion and stenosis of right carotid artery (principal); J44.9 Chronic obstructive pulmonary disease, unspecified; Z95.1 Presence of aortocoronary bypass graft; I25.10 Atherosclerotic heart disease of native coronary artery without angina pectoris; Z86.73 Personal history of transient ischemic attack (TIA), and cerebral infarction without residual deficits; E03.9 Hypothyroidism, unspecified; I12.9 Hypertensive chronic kidney disease with stage 1 through stage 4 chronic kidney disease, or unspecified chronic kidney disease; N18.9 Chronic kidney disease, unspecified; Z87.891 Personal history of nicotine dependence
CPT/HCPCS: 71010; 80048; 85025; 85610; 86850; 86900; 86901; 88304; 88311; J1644; J2270; J2405; J2720; J3010; J7030; J7050